=== PATIENT | female | born 1955 | race Caucasian/White ===

== ENCOUNTER 2021-01-11 16:52 | Emergency (ER) | payer MEDICARE, OTHER, SELFPAY ==
--- NOTE | ~2021-01-11 | CT_ITS ---
EXAMINATION: CT abdomen pelvis wo con DATE: 01/11/2021 18:23 INDICATION: Right lower quadrant abdominal pain TECHNIQUE: Computed tomography (CT) of the abdomen and pelvis was performed without intravenous contr ast. Automated exposure control and iterative reconstruction technique were employed. The dose-length product was 964.84 mGy-cm. COMPARISON: None FINDINGS: Lung bases are clear. Visualized inferior heart is normal. No pericardial or pleural effusion. Modera te-sized sliding-type hiatal hernia. Liver, gallbladder, spleen and bilateral adrenal glands are norm al. Mild fatty atrophy of the pancreatic body and tail with moderate atrophy at the uncinate process. Bilateral nephrolithiasis with 5 stones in the left kidney measuring up to 3-4 mm and a couple stone s measuring 1 mm and 2 mm at the lower pole of the right kidney. There is mild right hydroureteroneph rosis extending to a 4 x 3 mm stone at the right ureterovesicular junction. The bladder is decompress ed. There are few diverticula at the junction of the descending and sigmoid colon without adjacent in flammatory change to suggest diverticulitis. Small bowel and appendix are normal. The uterus is not i dentified and has likely been surgically resected. No free intraperitoneal gas or fluid. No pathologi lemuel enlarged abdominal or pelvic lymphadenopathy. Chronic T12 burst fracture with 20% vertebral bod y height loss. IMPRESSION: 1. Bilateral nephrolithiasis with obstructing 4 x 3 mm stone at the right ureterovesicular junction w ith mild right hydroureteronephrosis. 2. Moderate-sized sliding-type hiatal hernia. Reviewed, dictated and finalized at location A. IMPRESSION: 1. Bilateral nephrolithiasis with obstructing 4 x 3 mm stone at the right urete rovesicular junction with mild right hydroureteronephrosis. 2. Moderate-sized sliding-type hiatal hernia.
[2021-01-11 17:05] VITALS: BP 142/83; PULSE 85; RESP 18; TEMP 36.3; O2SAT 98
[2021-01-11 17:26] LABS: Add Urine Microscopic? YES; Appearance Urine Clear (Clear); Bilirubin Urine Negative (Negative); Blood Urine 3+ (Negative); Color Urine Yellow (Yellow); Glucose Urine UA Negative (Negative); Ketones Urine Negative (Negative); Leukocyte Esterase Ur Trace LEU/UL (Negative); Mucus Urine Moderate /lpf; Nitrate Urine Negative (Negative); Protein Urine 1+ mg/dL (Negative); Squamous Epithelial Cell Urine Few /hpf (Few); Urobilinogen Urine Negative mg/dL (<2.0)
[2021-01-11 17:31] LABS: Specific Grav Ur 1.032 (1.001-1.035)
[2021-01-11 17:36] LABS: Basophils Absolute Auto 0.1 K/mm3 (0.0-0.1); Basophils Percent Auto 0.4 % (0.2-1.2); Eosinophils Absolute Auto 0.2 K/mm3 (0-0.3); Eosinophils Percent Auto 1.3 % (0-4.4); Hematocrit 41.9 % (37.0-47.0); Hemoglobin 14.1 g/dL (12.0-15.0); Immature Granulocyte Absolute 0.04 K/mm3 (0.00-0.031); Immature Granulocyte Percent A 0.3 % (0-0.5); Lymphocytes Absolute Auto 3.38 K/mm3 (0.9-3.2); Lymphocytes Percent Auto 29.4 % (18.3-44.2); Mean Corpuscular HGB Conc 33.7 g/dl (32-36); Mean Corpuscular Hemoglobin 30.7 pg (26-34); Mean Corpuscular Volume 91.1 fl (80-100); Mean Platelet Volume 10.3 fl (7.4-10.4); Monocytes Absolute Auto 0.7 K/mm3 (0.1-0.6); Monocytes Percent Auto 5.8 % (2.6-8.5); Neutrophils Absolute Auto 7.2 K/mm3 (1.3-6.7); Neutrophils Percent Auto 62.8 % (45.5-73.1); Platelet Count Result 368 k/mm3 (150-375); Red Cell Distribution Width 12.9 % (11.5-14.5); White Blood Count 11.5 K/mm3 (4.5-10.0)
[2021-01-11 17:47] LABS: Alanine Aminotransferase 25 U/L (4-35); Alkaline Phosphatase 116 U/L (38-126); Anion Gap 14 mmol/L (8-16); Aspartate Amino Transferase 30 U/L (14-36); Bilirubin,Total 0.5 mg/dL (0.2-1.3); Blood Urea Nitrogen 23 mg/dL (7-17); Calcium 10.3 mg/dL (8.4-10.2); Carbon Dioxide 22 mmol/L (22-30); Chloride 107 mmol/L (98-107); Estimated CRCL calculation 56 ml/min; Estimated Glomerular Filt Rate > 60; Glucose 93 mg/dL (65-110); Lipase 74 U/L (23-300); Sodium 143 mmol/L (137-145)
--- NOTE | 2021-01-11 18:11 | ED.ABDPAIN ---
HPI - Abdominal Pain General Chief Complaint: Abdominal Pain Stated Complaint: RLQ PAIN Time Seen by Provider: 01/11/21 16:56 Source: patient Mode of arrival: ambulatory Limitations: no limitations History of Present Illness HPI narrative: 65-year-old female Referred over from urgent care for evaluation of abdominal pain Patient reports that she has been having pain in the lower right abdomen for about 3 days Worse with some activities or with palpation at the urgent care She vomited once at the onset but otherwise does not have diarrhea or constipation, nor does she have a fever Likewise denies hematuria dysuria frequency or back pain Previous hysterectomy, no other abdominal operations Related Data Home Medications Medication Instructions Recorded Confirmed calcium carbonate-vitamin D3 1 tablet PO DAILY 03/06/19 03/06/19 [Caltrate with Vitamin D3] fexofenadine 1 mg PO DAILY 03/06/19 03/06/19 omeprazole See Rx Instructions .ROUTE .COMPLEX 03/06/19 03/06/19 pravastatin 40 mg DAILY 03/06/19 03/06/19 Allergies Allergy/AdvReac Type Severity Reaction Status Date / Time niacin Allergy Mild Verified 08/14/10 14:40 PAIN MED Allergy Mild Uncoded 08/14/10 14:40 PCN Allergy Mild Uncoded 11/14/08 16:38 Review of Systems Review of Systems: All systems reviewed & are unremarkable except as noted in HPI and below Constitutional: Constitutional: Reports no additional constitutional complaints, Denies chills, Denies fever(s) and Denies headache(s) Eyes: Eyes: Reports no additional eye complaints and Denies change in vision ENT: Denies headache(s) and Denies sore throat Cardiovascular: Cardiovascular: Denies chest pain and Denies dyspnea Respiratory: Respiratory: Denies cough and Denies dyspnea Gastrointestinal: Gastrointestinal: Reports abdominal pain, Denies bloating, Denies constipation, Denies diarrhea, Reports nausea and Reports vomiting Genitourinary: Genitourinary: Denies urinary frequency, Denies nocturia, Denies dysuria and Denies flank pain Musculoskeletal: Musculoskeletal: Denies deformity, Denies arthralgias, Denies joint swelling and Denies numbness Integumentary/Breasts: Skin/Breast: Denies rash and Denies wounds Neurologic: Denies headache(s), Denies focal weakness and Denies numbness Psychiatric: Psychiatric: Reports no additional psychiatric complaints Endocrine: Endocrine: Reports no additional endocrine complaints Hematologic/Lymphatic: Hematologic/Lymphatic: Reports no additional hematologic/lymphatic complaints Allergic/Immunologic: Allergic/Immunologic: Reports no additional allergic/immunologic complaints [facility] Social History Social History Gender identity (if verbalized by the patient): Female Exam Const: General: cooperative and no acute distress Orientation/consciousness: patient oriented x3 (alert) HENMT: Head: normal to inspection, normocephalic and atraumatic Ears: external ears normal General nose exam: no epistaxis Eyes: Conjunctivae: conjunctivae normal EOM: EOMs intact bilaterally Neck: Neck: normal visual inspection, supple and no JVD Resp: Effort & Inspection: normal respiratory effort and not labored Auscultation: clear to auscultation bilaterally, no rales, no rhonchi, no wheezes and other (BS =) Cardio: Rate: regular rate Rhythm: regular rhythm Heart sounds: no murmurs GI: GI Palp: Yes Soft to palpation, No Tenderness to palpation present (GI), No Guarding due to palpation present (GI) and No Rebound tenderness present Other: Really cannot elicit any right lower quadrant tenderness currently Skin: General skin exam: normal color and no rashes or lesions noted Neuro: General: patient oriented x3 (alert) and moves all extremities Speech: normal speech Extrem: General: normal to inspection and no pedal edema Psych: Affect: normal affect Course Vital Signs Vital signs: Vital Signs Temperature 36.3 C L 01/11/21 17:05 Pulse Rate 85
[2021-01-11 18:16] VITALS: BP 142/84; PULSE 80; RESP 16; O2SAT 97
[2021-01-11] MEDS: KETOROLAC 30 MG/ML VIAL (*BKC) IV PUSH (19:48)
[2021-01-11 19:49] VITALS: BP 140/70; PULSE 70; RESP 18; O2SAT 100
== END 2021-01-11 20:40 | disposition home or self-care (01) ==
PROVIDERS: Emergency Provider Emergency Medicine
DX: N13.2 Hydronephrosis with renal and ureteral calculous obstruction (principal); K44.9 Diaphragmatic hernia without obstruction or gangrene
CPT/HCPCS: 36415; 74176; 80053; 81001; 83690; 85025; 87086; 87088; 96374; 99284; J1885

== ENCOUNTER 2021-01-23 14:28 | Outpatient (CLI) | payer MEDICARE, OTHER, SELFPAY ==
--- NOTE | ~2021-01-23 | XR_ITS ---
EXAMINATION: XR abdomen/kub 1V EXAM DATE: 01/23/2021 15:01 INDICATION: calcium kidney stone F/U . TECHNIQUE: Frontal projection of the upper abdomen, frontal projection lower abdomen/pelvis for inter pretation. Correlation is made to CT abdomen pelvis 01/11/2021. FINDINGS: Cannot identify any pelvic calcification that would correlate with the right UVJ stone see n on CT. There is left sided 5 mm stone. Nonobstructive bowel gas pattern. There are mild bony degene rative changes. IMPRESSION: Left nephrolithiasis. Reviewed, dictated and finalized at location A. IMPRESSION: Left nephrolithiasis.
== END 2021-01-23 14:29 | disposition home or self-care (01) ==
PROVIDERS: Visit Provider Nurse Practitioner Adult Health
DX: N20.0 Calculus of kidney (principal)
CPT/HCPCS: 74018

== ENCOUNTER 2021-02-02 14:08 | Outpatient (CLI) | payer MEDICARE, OTHER, SELFPAY ==
--- NOTE | 2021-02-02 14:00 | ECG_ITS ---
Measurements Intervals [place] Rate: 75 P: 40 IN: 143 QRS: -7 QRSD: 82 T: 29 QT: 352 QTc: 393 Interpretive Statements SINUS RHYTHM POOR R WAVE PROGRESSION, ANTERIOR LEADS BASELINE ARTIFACT- I, II, AVR, AVL, AVF BORDERLINE ECG Electronically Signed On 02-02-2021 14:39:58 CDT by Victor M Flores D.O.
[2021-02-02 15:54] LABS: INR 0.9; Partial Thromboplastin Time 26.7 SECONDS (22.3-36.8); Prothrombin Time 12.2 Seconds (11.1-14.7)
== END 2021-02-02 14:09 | disposition home or self-care (01) ==
PROVIDERS: Visit Provider Urology
DX: Z01.818 Encounter for other preprocedural examination (principal); E78.00 Pure hypercholesterolemia, unspecified; N20.0 Calculus of kidney
CPT/HCPCS: 36415; 85610; 85730; 87086; 87088; 93005

== ENCOUNTER 2021-02-09 00:48 | Day surgery (SDC) | payer MEDICARE, OTHER, SELFPAY ==
[2021-02-01 10:02] VITALS: BMI 32.5
--- NOTE | 2021-02-02 15:47 | P.HP_ITS ---
History of Present Illness History of Present Illness Consent: Risks, benefits, and alternatives have been discussed and questions answered. Patient agrees to proceed with procedure. Chief complaint: bilateral kidney stone Narrative: Ailyn Vargas is a 66 year old female recently underwent evaluation for flank pain. CT imaging demonstrated a nonobstructing 5 mm stone in her left kidney that, by KUB, is calcified. After discussion of therapeutic options she has elected for ESWL. She is aware the risk including, but not limited to, adverse cardiopulmonary events, renal bleeding leading to perinephric hematoma, failure to fracture the stone need for repeat or additional procedures. Review of Systems Cardiovascular: Cardiovascular: Denies chest pain, Denies lightheadedness, Denies palpitations and Denies dyspnea Respiratory: Respiratory: Denies dyspnea Gastrointestinal: Gastrointestinal: Denies diarrhea, Denies nausea and Denies vomiting Genitourinary: Genitourinary: Denies hematuria and Denies dysuria Endocrine: Endocrine: Denies palpitations PMFSH Social History Social History Smoking status: Never smoker Gender identity (if verbalized by the patient): Female Spiritual care concerns: No Meds Home Medications and Allergies Home Medications Medication Instructions Recorded Confirmed Type calcium carbonate-vitamin D3 1 tablet PO DAILY 03/06/19 02/01/21 History [Caltrate with Vitamin D3] fexofenadine 1 mg PO DAILY 03/06/19 02/01/21 History omeprazole See Rx Instructions .ROUTE .COMPLEX 03/06/19 02/01/21 History pravastatin 40 mg PO DAILY 03/06/19 02/01/21 History hydrocodone-acetaminophen 1 tablet PO Q8H PRN #10 tablet 01/11/21 02/01/21 Rx ondansetron 4 mg PO Q6H PRN #10 tablet 01/11/21 02/01/21 Rx tamsulosin [Flomax] 0.4 mg PO DAILY #7 cap 01/11/21 02/01/21 Rx cholecalciferol (vitamin D3) 25 mcg PO DAILY 02/01/21 02/01/21 History ibuprofen [Advil] 400 mg PO Q6H PRN 02/01/21 02/01/21 History epjok-wn8-wyw-dzj-co4-hhf-astx 1 cap PO DAILY 02/01/21 02/01/21 History [Krill Oil ([place] 3 and 6)] Allergies Allergy/AdvReac Type Severity Reaction Status Date / Time niacin Allergy Mild Flushing Verified 02/01/21 09:45 morphine Allergy Nausea and Verified 02/01/21 09:45 Vomiting PAIN MED Allergy Mild SENSITIVE Uncoded 02/01/21 09:45 PCN Allergy Mild Rash Uncoded 02/01/21 09:45 Exam Const: General: no acute distress Resp: Effort & Inspection: normal respiratory effort GI: Inspection: non-distended GI Palp: No abdominal tenderness and No Guarding due to palpation present (GI) Auscultation: normal bowel sounds Assessment and Plan Assessment and plan (1) Left renal stone: Code(s): N20.0 - Calculus of kidney Status: Acute
[2021-02-09] VITALS (8 sets, daily range): BP systolic 115–140; BP diastolic 62–89; PULSE 64–75; RESP 12–16; TEMP 36.1–36.5; O2SAT 93–100
--- NOTE | ~2021-02-09 | XR_ITS ---
EXAMINATION: XR abdomen/kub 1V DATE: 02/09/2021 07:52 INDICATION: Kidney stone. TECHNIQUE: A supine view of the abdomen on 2 radiographs was obtained. COMPARISON: CT abdomen and pelvis 01/11/2021 FINDINGS: There are no dilated loops of bowel. There is a 5 mm stone in left kidney. There is a phleb olith in right pelvis. IMPRESSION: 1. Left kidney stone. Reviewed, dictated and finalized at location A. IMPRESSION: 1. Left kidney stone.
--- NOTE | 2021-02-09 06:53 | WPDHPUPDATE1 ---
History and Physical Update Update Date/Time: 02/09/21 06:53 History and Physical has been reviewed, including an updated exam of the patient. There are NO changes in the patient's condition. Risks, benefits, and alternatives have been discussed and questions answered. Patient agrees to proceed with procedure.
[2021-02-09] MEDS: LACTATED RINGERS 1,000 ML 30 ML IV CONT (09:06)
--- NOTE | 2021-02-09 09:12 | P.PNAN_ITS ---
Anes - Initial Pre Proc Eval Procedure: Operation Date: 02/09/21 09:30 Proposed Procedures p Left Extracorporeal Shock Wave Lithotripsy - Khurram Mondragon MD Date/Time: 02/09/21 09:12 Surgeon: Khurram Mondragon MD Pre Op Diagnosis: bilateral kidney stone Patient Data Age: 66 Gender: F Height: 1.6 m Weight: 84.6 kg Last Vital Signs Temp 36.1 C L 02/09/21 08:28 Pulse 75 02/09/21 08:28 Resp 16 02/09/21 08:28 BP 129/62 02/09/21 08:28 Pulse Ox 95 02/09/21 08:28 Allergies Allergy/AdvReac Type Severity Reaction Status Date / Time niacin Allergy Mild Flushing Verified 02/09/21 08:01 morphine Allergy Nausea and Verified 02/09/21 08:01 Vomiting PAIN MED Allergy Mild SENSITIVE Uncoded 02/01/21 09:45 PCN Allergy Mild Rash Uncoded 02/09/21 08:01 Home Medications Medication Instructions Recorded Confirmed Type calcium carbonate-vitamin D3 1 tablet PO DAILY 03/06/19 02/09/21 History [Caltrate with Vitamin D3] fexofenadine 1 mg PO DAILY 03/06/19 02/09/21 History omeprazole See Rx Instructions .ROUTE .COMPLEX 03/06/19 02/09/21 History pravastatin 40 mg PO DAILY 03/06/19 02/09/21 History hydrocodone-acetaminophen 1 tablet PO Q8H PRN #10 tablet 01/11/21 02/01/21 Rx ondansetron 4 mg PO Q6H PRN #10 tablet 01/11/21 02/01/21 Rx tamsulosin [Flomax] 0.4 mg PO DAILY #7 cap 01/11/21 02/09/21 Rx cholecalciferol (vitamin D3) 25 mcg PO DAILY 02/01/21 02/09/21 History ibuprofen [Advil] 400 mg PO Q6H PRN 02/01/21 02/09/21 History vdyrh-ji5-kjz-fbm-bj9-bxq-astx 1 cap PO DAILY 02/01/21 02/09/21 History [Krill Oil ([place] 3 and 6)] Patient hx anesthesia problems: post op nausea/vomiting Family hx anesthesia problems: none Results Review: All pre-operative results and documents have been reviewed as part of the pre-operative evaluation. [facility] Past Medical History Medical History GERD (gastroesophageal reflux disease) Hyperlipidemia Social History Social History Smoking status: Never smoker Living arrangements: with family Gender identity (if verbalized by the patient): Female Spiritual care concerns: No Anes - Eval Final PreProcedure Day of Procedure 02/09/21 09:12 Patient weight: obese Heart: regular rate and rhythm Lungs: clear to auscultation Airway: Mallampati scale class II Neurological: alert and oriented Last oral intake: >/= 8 hours ASA classification: III Emergent: no Anesthetic plan: proceed Anesthesia type and monitoring: general LMA and standard monitoring Results Review: All pre-operative results and documents have been reviewed as part of the pre-operative evaluation. Informed Consent: The patient's anesthetic plan and its attendant risks and benefits were discussed with the patient/family/POA. Questions were solicited and answers provided to the satisfaction of the patient/family/POA.
[2021-02-09] MEDS: SCOPOLAMINE 1.5 MG PATCH TRANSDERM (09:16)
[2021-02-09] MEDS: ceFAZolin 2 GM/D5W 50 ML 2 GM/50 ML BAG IVPB (09:18)
--- NOTE | 2021-02-09 09:33 | W.PM.PROC2 ---
Procedure Note - Detailed Date of Procedure 02/09/21 Pre-op Diagnosis Bilateral kidney stone Post-op Diagnosis same Procedure Performed Left ESWL Surgeon Khurram Mondragon MD Description of Procedure The patient was brought to the operative suite where she was placed in the supine position on the Dornier lithotripsy table. The focal point of the lithotripter was placed at a 5-6mm left renal calculus. A total of 2500 shocks were delivered at a power setting of 4. There appeared to be good fragmentation of the stone. The patient tolerated the procedure well and was taken to the recovery room in good condition. Estimated Blood Loss 0 Drains No Packing No Pathology yes Complications No immediate complications Condition stable Disposition PACU
--- NOTE | 2021-02-09 11:59 | SUR.PHASEII ---
Vitals are stable. Patient is waiting for ride.
== END 2021-02-09 12:01 | disposition home or self-care (01) ==
PROVIDERS: Visit Provider Urology
PROC: (CPT 50590; principal; 2021-02-09 09:30)
DX: N20.0 Calculus of kidney (principal); E78.5 Hyperlipidemia, unspecified; K21.9 Gastro-esophageal reflux disease without esophagitis; E66.9 Obesity, unspecified; Z68.33 Body mass index [BMI] 33.0-33.9, adult
CPT/HCPCS: 50590; 74018; A9270; J0690; J1100; J2250; J2405; J2704; J3010; J7120

== ENCOUNTER 2021-02-20 11:21 | Outpatient (CLI) | payer MEDICARE, OTHER, SELFPAY ==
--- NOTE | ~2021-02-20 | XR_ITS ---
EXAMINATION: XR abdomen/kub 1V INDICATION: Calcium kidney stone TECHNIQUE: Supine views of the abdomen were obtained on 2 radiographs. COMPARISON: 02/09/2021 FINDINGS: The previously described 5 mm stone of the left kidney is no longer identified. No stone fr agments are identified in the kidney or along the expected course of the left ureter.. The bowel gas pattern is normal. There is mild osteoarthritis of the hips. IMPRESSION: 1. Findings consistent with interval lithotripsy. No definite urolithiasis is identified. Reviewed, dictated and finalized at location B. IMPRESSION: 1. Findings consistent with interval lithotripsy. No definite urolithiasis is i dentified.
== END 2021-02-20 11:22 | disposition home or self-care (01) ==
LOC: ANHIMG 11:26
PROVIDERS: Visit Provider Urology
DX: N20.0 Calculus of kidney (principal)
CPT/HCPCS: 74018

== ENCOUNTER 2021-08-20 14:48 | Outpatient (CLI) | payer MEDICARE, OTHER, SELFPAY ==
--- NOTE | ~2021-08-20 | XR_ITS ---
EXAMINATION: XR abdomen/kub 1V INDICATION: Bilateral kidneys TECHNIQUE: Supine views of the abdomen were obtained on 2 radiographs. COMPARISON: 02/20/2021 FINDINGS: There appears to be a punctate stone in the lower pole of the right kidney. Bowel contents obscure visualization of the left kidney however no definite left-sided stones are identified. The willis wel gas pattern is normal. The visualized lung bases are clear. There is mild osteoarthritis of the h ips. IMPRESSION: 1. Probable punctate stone of the right kidney lower pole. Reviewed, dictated and finalized at location A.
== END 2021-08-20 14:49 | disposition home or self-care (01) ==
PROVIDERS: Visit Provider Urology
DX: N20.0 Calculus of kidney (principal)
CPT/HCPCS: 74018

== ENCOUNTER 2021-11-05 12:08 | Emergency (ER) | payer MEDICARE, OTHER, SELFPAY ==
[2021-11-05 12:23] VITALS: BP 116/67; PULSE 83; RESP 20; TEMP 36.6; O2SAT 97
--- NOTE | 2021-11-05 12:46 | ED.FEMALEGU ---
HPI - Female Genitourinary General Chief complaint: Urogenital-Female Stated complaint: uti complaint Time Seen by Provider: 11/05/21 12:34 Source: patient Mode of arrival: ambulatory Limitations: no limitations History of Present Illness HPI Narrative: Patient presents today complaint of 1 week history of dysuria, urgency, and bladder spasms. She has been taking bbxm-cbw-yzbenrs Azo for her symptoms and the last dose was this morning. Patient also took a weeks worth of someone else's Macrobid, which did not help her symptoms. Related Data Home Medications Medication Instructions Recorded Confirmed calcium carbonate 600 mg-vitamin 1 tablet PO DAILY 03/06/19 11/05/21 D3 20 mcg (800 unit) tablet (Caltrate with Vitamin D3) fexofenadine 180 mg tablet 1 mg PO DAILY 03/06/19 11/05/21 omeprazole 20 mg capsule,delayed See Rx Instructions .Route .COMPLEX 03/06/19 11/05/21 release pravastatin 40 mg tablet 40 mg PO DAILY 03/06/19 11/05/21 cholecalciferol (vitamin D3) 25 25 mcg PO DAILY 02/01/21 11/05/21 mcg (1,000 unit) tablet krill 1 cap PO DAILY 02/01/21 11/05/21 goj-[id number]-tnc-vmj-uw9-cri-astax 1,500 mg-165 mg-67.5 mg capsule (Krill Oil ([place] 3 and 6)) Allergies Allergy/AdvReac Type Severity Reaction Status Date / Time niacin Allergy Mild Flushing Verified 11/05/21 12:35 morphine Allergy Nausea and Verified 11/05/21 12:35 Vomiting PAIN MED Allergy Mild SENSITIVE Uncoded 11/05/21 12:35 PCN Allergy Mild Rash Uncoded 11/05/21 12:35 Review of Systems Review of Systems: CONSTITUTIONAL: Denies body aches, fever, chills, or sweats. EYES: Denies visual changes, redness, or discharge. ENT: Denies rhinorrhea, congestion, sore throat, or otalgia. CARDIOVASCULAR: Denies chest pain, palpitations, or edema. RESPIRATORY: Denies cough or dyspnea. GASTROINTESTINAL: Denies abdominal pain, nausea, vomiting, or diarrhea. GENITOURINARY: Denies hematuria.+ Dysuria, urgency, bladder spasms SKIN: Denies rash, itching, or wounds. MUSCULOSKELETAL: Denies back pain, joint pain, or myalgia. NEUROLOGIC: Denies headache, numbness, tingling, or weakness. PSYCH: Denies depression or anxiety. [facility] Past Medical History Medical History GERD (gastroesophageal reflux disease) Hyperlipidemia Social History Social History Smoking status: Never smoker Gender identity (if verbalized by the patient): Female Spiritual care concerns: No Comments At time of signature, I have reviewed and agree with nursing past medical, surgical, social and family history unless otherwise noted. Please see nursing chart for further information. There is no relevant family history pertinent to the presenting complaint Exam Narrative: GENERAL: Well-appearing, well-nourished, and in no acute distress. HEAD: Normocephalic, atraumatic. EYES: EOMI. No redness or drainage. Conjunctivae normal. ENT: Mucous membranes pink and moist. NECK: Normal AROM. CHEST: No respiratory distress. Clear to auscultation. HEART: Regular rate and rhythm. No murmur appreciated. Normal peripheral pulses. ABDOMEN: Soft, nontender, nondistended, normal active bowel sounds.-CVAT EXTREMITIES: Normal range of motion. No edema. SKIN: Warm, dry, no rash. Capillary refill normal. Normal skin turgor. NEURO: No focal deficits. Alert and oriented x3. Gait steady. PSYCH: Normal affect. No signs of depression or anxiety. Course Course Emergency Course: Discussed with patient the importance of not taking Azo prior to visit if she is going to provide a urine sample, as this excuse the results of the urinalysis. Patient states she was in too much pain this morning to wait, then asked me if I had ever had a bladder infection before, as then I would know why she took it. Also states that she gets UTIs frequently and she has been getting them long befor
== END 2021-11-05 13:01 | disposition home or self-care (01) ==
PROVIDERS: Emergency Provider Nurse Practitioner; PCP Family Medicine
DX: N30.01 Acute cystitis with hematuria (principal); K21.9 Gastro-esophageal reflux disease without esophagitis; E78.5 Hyperlipidemia, unspecified
CPT/HCPCS: 81003; 87086; 87088; 99213; G0463

== ENCOUNTER 2022-11-26 15:01 | Outpatient (CLI) | payer MEDICARE, OTHER, SELFPAY ==
--- NOTE | ~2022-11-26 | XR_ITS ---
EXAM: XR abdomen/kub 1V DATE: 11/26/2022 15:17 HISTORY: PRASHANTH KIDNEY STONES . COMPARISON: 08/20/2021; CT abdomen pelvis 01/11/2021. FINDINGS: Senescent change and atelectasis/scar in the lung bases. Normal bowel gas pattern. No orga nomegaly. Punctate calcifications project over both kidneys. Mild lumbar degenerative disc disease. M ild bilateral hip osteoarthritis. IMPRESSION: Bilateral punctate nephrolithiasis.. Reviewed, dictated and finalized at location K.
== END 2022-11-26 15:02 | disposition home or self-care (01) ==
PROVIDERS: PCP Family Medicine; Visit Provider Nurse Practitioner Adult Health
DX: N20.0 Calculus of kidney (principal)
CPT/HCPCS: 74018

== ENCOUNTER 2023-06-03 14:30 | Outpatient (CLI) | payer MEDICARE, OTHER, SELFPAY ==
--- NOTE | ~2023-06-03 | XR_ITS ---
EXAMINATION: XR abdomen/kub 1V DATE: 06/03/2023 14:49 INDICATION: Bilateral kidney stones. TECHNIQUE: A supine view of the abdomen on 2 radiographs was obtained. COMPARISON: Abdomen radiographs 11/26/2022, CT abdomen and pelvis 01/11/2021 FINDINGS: There are no dilated loops of bowel. There are vascular calcifications in the pelvis. The k idneys are obscured by bowel. IMPRESSION: 1. No visible urolithiasis. Reviewed, dictated and finalized at location A. [employer]PER[employer] IMPRESSION: 1. No visible urolithiasis.
== END 2023-06-03 14:31 | disposition home or self-care (01) ==
LOC: ANHIMG 14:32
PROVIDERS: PCP Family Medicine; Visit Provider Physician Assistant
DX: N20.0 Calculus of kidney (principal)
CPT/HCPCS: 74018

== ENCOUNTER 2023-12-09 13:46 | Outpatient (CLI) | payer MEDICARE, OTHER, SELFPAY ==
--- NOTE | ~2023-12-09 | XR_ITS ---
XR abdomen/kub 1V Ordering provider: Ansley Philip PA-C History: . PRASHANTH KIDNEY STONES, YEARLY F/U . Comparison: June 03, 2023 FINDINGS: BOWEL: Nonobstructive bowel gas pattern. ORGANOMEGALY: None. SIGNIFICANT PATHOLOGIC CALCIFICATIONS: Calcifications in the left kidney area suggestive of Multiple left kidney stones. OTHER: No free air is seen under the diaphragm. IMPRESSION: NO ACUTE ABDOMINAL FINDINGS. Highly suggestive multiple left kidney stones. Reviewed, dictated and finalized at location A.
== END 2023-12-09 13:47 | disposition home or self-care (01) ==
PROVIDERS: PCP Family Medicine; Visit Provider Physician Assistant
DX: N20.0 Calculus of kidney (principal)
CPT/HCPCS: 74018

== ENCOUNTER 2024-07-06 15:32 | Outpatient (CLI) | payer MEDICARE, OTHER, SELFPAY ==
--- NOTE | ~2024-07-06 | XR_ITS ---
Exam: Abdomen 1V HISTORY: annual checkup; no symptoms COMPARISON: 12/09/2023 TECHNIQUE: Supine images of the abdomen FINDINGS: Bowel gas pattern is non-obstructive. There is no free air or deep sulci. Redemonstration of multiple calcifications projecting over the left kidney. Calcified pleural plaques are also noted. Moderate fecal stasis is also present. Bones and soft tissues are unremarkable. IMPRESSION: Nonspecific, nonobstructive bowel gas pattern. Multiple calcifications projecting over the left kidney, as detailed above. Reviewed, dictated and finalized at location A.
--- OUTSIDE RECORDS SUMMARY | 2024-07-06 17:32 | XMS_ITS | Encounter Summary ---
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 Name Role Phone Lam Duarte DO Primary Care Provider + Encounter Details Date Type Department Care Team ([facility] st Contact Info) Description 12/09/2023 [place] Only [facility] [place] [facility] [place] [address] [place] [id number] Lam Duarte DO [facility] [address] Social History Tobacco Use Types Packs/Day Years Used Date Smoking Tobacco: Never PHQ-2 Answer Date Recorded PHQ-2 Total Score (If total score is 3 or more points, staff should administer the PHQ-9) 0 08/25/2023 Comments No Sex and Gender Information Value Date Recorded Sex Assigned at Not on file 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 Gender Identity Not on file Sexual Orientation Straight 07/21/2021 10 :55 PM CDT documented as of this encounter Plan of Treatment Not on file documented as of this encounter Procedures Procedure Name Priority Date/Time Associated Diagnosis Comments SCAN - RADIOLOGY/IMAGING 12/09/2023 documented in this encounter Results * SCAN - RADIOLOGY/IMAGING (12/09/2023) Anatomical Region Laterality Modality Other Lam Duarte DO Final Re sult documented in this encounter Visit Diagnoses Not on filedocumented in this encounter Care Teams [employer] Well 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
--- OUTSIDE RECORDS SUMMARY | 2024-07-06 17:32 | XMS_ITS | Clinical Summary ---
Author Organization [facility] Address [address] [place] [address] Care Team Providers Care Accounting Intern Name Role Phone Unavailable Primary Care Provider Unavailabl e Medications omeprazole 20 MG capsule Take 1 capsule (20 mg total) by mouth daily. 30 capsule 3 12/11/2020 Active pravastatin 20 MG tablet Take 2 tablets (40 mg total) by mouth nightly at bedtime. 90 tablet 3 12/11/2020 Active fexofenadine 180 MG tablet Take 1 tablet (180 mg total) by mouth daily. 90 tablet 3 12/11/2020 Active Social History Tobacco Use Types Packs/Day Years Used Date Smoking Tobacco: Never Assessed Comments Unknown Sex and Gender Information Value Date Recorded Sex Assigned at Not on file Legal Sex Female 5:52 PM CDT Gender Identity Not on file Sexual Orientation Not on file Plan of Treatment Health Maintenance Due Date Last Done Comments Colorectal Cancer Screening Colonoscopy (10 Years) 1955 Hepatitis C 01/16/1974 DTaP, Tdap and Td Vaccines ( 1 - Tdap) 01/16/1975 Mammogram Screening 1996 Zoster Vaccines (1 of 2) 01/16/2006 Dexa Scan (General) 01/16/2021 Pneumococcal Vaccine: 65+ Ye ars (1 of 1 - PCV) 01/16/2021 COVID-19 Vaccine ( - 2023-2 5 season) 2023 Influenza Adult (#1) 2024 RSV Immunization or 60+ Years (1 - 1-dose 75+ series) 01/16/2031 Meningococcal B Vaccine Aged Out No l onger eligible based on patient's age to complete this topic Meningococcal Vaccine Aged Out No fish dali eligible based on patient's age to complete this topic RSV Immunizations Under 20 Months Aged Out No longer eligible based on patient's age to complete this topic
--- OUTSIDE RECORDS SUMMARY | 2024-07-06 17:32 | XMS_ITS | Encounter Summary ---
Author Organization [facility] Care Team Providers Care Senior Technical Support Analyst Name Role Phone No, Physician Primary Care Provider [phone] Lam Duarte DO Primary Care Provider + Encounter Details Date Type Department Care Team (Latest Contact Info) Description 09/13/2014 Orders Only [facility] ProviderGerald MD [address] [place] [id number] Social History Tobacco Use Types Packs/Day Years Used Date Smoking Tobacco: Never Assessed Comments Unknown Sex and Gender Information Value Date Recorded Sex Assigned at Not on file 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 Historical Provider Final Res ult documented in this encounter Visit Diagnoses Not on filedocumented in this encounter Care Teams Senior Technical Support Analyst Relationship Specialty Start Date End Date No, Physician PCP - General 05/16/21 07/22/21 Lam Duarte DO [address] [address] PCP - General Family Medicine 07/23/21 documented as of this encounter
--- OUTSIDE RECORDS SUMMARY | 2024-07-06 17:32 | XMS_ITS | Clinical Summary ---
Author Organization [facility] [employer] Address [address] [place] [address] Care Team Providers Care Machine Bobbin Winder Name Role Phone Unavailable Primary Care Provider Unavailabl e Source Comments [facility] [employer],non-owned Affiliates and Associated Physician Practices is amultiple site organization consisting of ambulatory clinics and hospital sitesin [place], [place], [place] and [place]. This disclosure is being madepursuant to the Care Everywhere program and may not contain all information available regarding this patient. Last updated 18.[facility] [employer] Social History Tobacco Use Types Packs/Day Years Used Date Smoking Tobacco: Never Assessed Sex and Gender Information Value Date Recorded Sex Assigned at Not on file Gender Identity Not on file Sexual Orientation Not on file Plan of Treatment Health Maintenance Due Date Last Done Comments BONE DENSITY TESTING 1955 COLOGUARD (AGES 45-75) - COL ON CA SCREENING 1956 COLON MONITORING 1956 COLONOSCOPY - COLON CA SCREENING 1956 CT COLONOGRAPHY - COLON CA SCREENING 1955 Colorectal Cancer Screening 1956 FIT - COLON CA SCREENING 1956 FLEX SIG - COLON CA SCREENING 1956 LIPID TESTING 1956 MAMMOGRAM 1956 MEDICARE AWV 12 MONTHS 1955 HEPATITIS C SCREENING 01/12/1974 DTAP/TDAP/TD VACCINES (1 - Tdap) 01/16/1975 PNEUMOCOCCAL VACCINE 50+ (1 of 1 - PCV) 01/16/2006 ZOSTER VACCINE (1 of 2) 01/16/2006 COVID-19 VACCINE ( - 2023-2 5 season) 2023 INFLUENZA VACCINE (#1) 2023 DEPRESSION SCREENING 04/21/2024 Respiratory Syncytial Virus (RSV) Vaccine Pt: or over 60 yrs (1 - 1-dose 75+ series) 01/16/2031 HEPATITIS B VACCINE Aged Out No longe r eligible based on patient's age to complete this topic HIB VACCINE Aged Out No longer eligi ble based on patient's age to complete this topic HPV VACCINE Aged Out No longer eligi ble based on patient's age to complete this topic MENINGOCOCCAL (Group B) VACC INE SHARED DECISION-MAKING Aged Out No longer eligibl e based on patient's age to complete this topic MENINGOCOCCAL GROUPS A/C/Y/W VACCINE Aged Out No longer eligible b ased on patient's age to complete this topic
--- OUTSIDE RECORDS SUMMARY | 2024-07-06 17:32 | XMS_ITS | Encounter Summary ---
Author Organization [facility] Address [address] [place] [address] Care Team Providers Care Web Content Specialist Name Role Phone Unavailable Primary Care Provider Unavailabl e Encounter Details Date Type Department Care Team (Late st Contact Info) Description 06/11/2023 Lab Requisition [facility] - DermPath Lab [address] [place] [id number] Chapis Palencia MD [address] [place] [address] Neoplasm of uncertain behavior of skin Social History Tobacco Use Types Packs/Day Years Used Date Smoking Tobacco: Never Assessed Sex and Gender Information Value Date Recorded Sex Assigned at Not on file Gender Identity Not on file Sexual Orientation Not on file documented as of this encounter Plan of Treatment Not on file documented as of this encounter Procedures Procedure Name Priority Date/Time Associated Diagnosis Comments DERMATOPATHOLOGY Routine 06/11/2023 3:33 AM PLUMBING INSTRUCTOR Neoplasm of uncertain behavior of skin documented in this encounter Results * DERMATOPATHOLOGY (06/11/2023 3:33 AM PLUMBING INSTRUCTOR) Case Report Dermatopathology Report Case: [id number] Authorizing Provider: Chapis Palencia MD Collected: 06/11/2023 03:33 AM Ordering Location: [facility] DermPath Lab Received: 06/12/2023 02:35 PM Pathologist: Nova Hannah MD Specimens: A) - Skin, upper sternum B) - Skin, left proximal posterior thigh 10:57 AM PLUMBING INSTRUCTOR DERMATOPATHOLOGY LABORATORY Final Diagnosis Specimen A. SKIN, upper sternum: LICHEN PLANUS-LIKE KERATOSIS (BENIGN LICHENOID KERATOSIS) (L82.1) Specimen B. SKIN, left proximal posterior thigh: BENIGN VERRUCOUS KERATOSIS (L82.1) 10:57 AM [facility] DERMATOPATHOLOGY LABORATORY Clinical History A: Basal Cell Carcinoma vs Sebaceous Hyperplasia B: Irritated Seborrheic Keratosis 10:57 AM [facility] DERMATOPATHOLOGY LABORATORY Gross Description Specimen A: Received is one formalin filled container labeled with the patient's name and designated upper sternum. The specimen consists of a shave biopsy measuring 8x5x1 mm. Jar 0. Specimen B: Received is one formalin filled container labeled with the patient's name and designated left proximal posterior thigh. The specimen consists of a shave biopsy measuring 9x7x2 mm. Jar 0. 10:57 AM [facility] DERMATOPATHOLOGY LABORATORY Microscopic Description Specimen A. SKIN, upper sternum: The epidermis is mildly acanthotic. There is a lichenoid infiltrate with vacuolar changes of basilar keratinocytes and scattered necrotic keratinocytes. Specimen B. SKIN, left proximal posterior thigh: Sections show hyperkeratosis, papillomatosis, hypergranulosis, and acanthosis. These histological findings can be seen in a verruca vulgaris or a seborrheic keratosis. 10:57 AM [facility] DERMATOPATHOLOGY LABORATORY Disclaimer An external and internal positive and negative controls are appropriate for the histochemical, immunohistochemical and immunofluorescence stain(s) in this case (if any), except where stated explicitly. The performance characteristics of the stain(s) cited in this report were developed and its performance characteristic determined by the Dermatopathology Laboratory at [facility], directed by Dr. Althea Chatman. These tests need not be, and therefore are not, approved by the [place] Food and Drug Administration. The tests are used for clinical purposes. Billing Codes Specimen Charges Stain Charges 27722 04134 1 1 10:57 AM [facility] DERMATOPATHOLOGY [facility]ORATORY Embedded Images 10:57 AM [facility] DERMATOPATHOLOGY LABORATORY Pathology/Cytology TISSUE SPECIMEN FROM SKIN / Unknown 06/11/2023 3:33 AM PLUMBING INSTRUCTOR 06/12/2023 2:35 PM PLUMBING INSTRUCTOR Miscellaneous samples (specimen) TISSUE SPECIMEN FROM SKIN / Unknown 06/11/2023 3:33 AM PLUMBING INSTRUCTOR 06/12/2023 2:35 PM PLUMBING INSTRUCTOR Chapis Palencia MD LAB - PATHOLOGY/CYTO LOGY ORDERABLES DERMATOPATHOLOGY LABORATORY [facility] - Department of Dermatology [facility] Medicine [address] [place] [address], [address] [phone] documented in this encounter Visit Diagnoses Diagnosis Neoplasm of uncertain behavior of skin documented in this encounter
--- OUTSIDE RECORDS SUMMARY | 2024-07-06 17:32 | XMS_ITS | Clinical Summary ---
Author Organization [facility] Address [address] [place] [phone] Care Team Providers Care Holiday Detector Operator Name Role Phone DuarteLam leroy Primary Care Provider + Allergies Active Allergy Reactions Criticality Noted Date Comments Morphine Vomiting Low 07/23/2021 Niacin Stomach upset Low 01/03/2017 Stomach/GI Upset Penicillins Rash Medium 01/03/2017 Rash Medications sak-X7-[id number]-zin o-acc-jzah-bor 600 mg calcium- 800 unit-50 mg tablet Take by mouth Active multivitamin with iron tablet Take 1 tablet by mouth daily Active calcium carbonate-vitami n D3 1,500 mg (600mg elemental) -800 unit per tablet Take 1 tablet by mouth daily 90 tablet 1 02/24/2023 Active fexofenadine (TERESA) 180 mg tablet TAKE 1 TABLET DAILY 90 tablet 3 08/06/2023 Active pravastatin (PRAVACHOL) 80 mg tablet Take 1 tablet (80 mg total) by mouth daily 90 tablet 3 08/25/2023 Active omeprazole (PriLOSEC) 20 mg capsuleIndicatio ns:Gastroesophag eal reflux disease without esophagitis Take 1 capsule (20 mg total) by mouth daily 90 capsule 3 08/25/2023 Active Active Problems Problem Noted Date Diagnosed Date Age-related osteoporosis wit hout current pathological fracture 07/23/2021 History of basal cell cancer Hyperlipidemia GERD (gastroesophageal reflux disease) Encounters Date Type Department Care Team Description 04/22/2024 1:15 PM DEAF INTERPRETER Office Visit [facility] Primary Care [address] [facility] [address] [place] [address] Lam Duarte DO Age-related osteoporosis without current pathological fracture (Primary Dx); Mixed hyperlipidemia; Gastroesophageal reflux disease without esophagitis; Class 1 obesity without serious comorbidity with body mass index (BMI) of 30.0 to 30.9 in adult, unspecified obesity type from Last 3 Months Immunizations Immunization Administration Dates Next Due Influenza, Quadrivalent, Elaina l Culture-based MDCK, Preservative Free, Antibiotic Free, Intramuscular 01/18/2020,02/20/2017 Influenza, Quadrivalent, Hig h Dose, Preservative Free, Intrr 02/24/2023,01/22/2022,01/20/2021 Influenza, Quadrivalent, Spl it, Preservative Free, Intramuscular 02/17/2018 Influenza, Trivalent, High D ose, Split, Preservative Free, Intramuscular 02/02/2024 Influenza, Trivalent, Preser vative Free, Intramuscular 03/20/2016,03/14/2015 Pneumococcal Conjugate Pcv20 08/09/2022 Tdap 03/20/2016 ZOSTER LIVE 03/20/2016 ZOSTER Recombinant 01/18/2020,05/06/2019 Surgical History Surgery Date Site/Laterality Comments HYSTERECTOMY Medical History Medical History Date Comments Hyperlipidemia GERD (gastroesophageal reflux disease) History of basal cell cancer Family History Medical History Relation Name Comments Alzheimer's disease Father Ovarian cancer Maternal Grandmother Hypertension Mother Relation Name Status Comments Father (Age 87) Maternal Grandmother Mother Alive Social History Tobacco Use Types Packs/Day Years Used Date Smoking Tobacco: Never Tobacco Cessation:Counseling Given: Not Answered PHQ-2 Answer Date Recorded PHQ-2 Total Score (If total score is 3 or more points, staff should administer the PHQ-9) 0 08/25/2023 Comments No Sex and Gender Information Value Date Recorded Sex Assigned at Not on file Legal Sex Female 5:57 AM DEAF INTERPRETER Gender Identity Not on file Sexual Orientation Straight 07/21/2021 10 :55 PM CDT Obstetrics History Para Term AB IAB SAB Ectopic Multiple Livin g Live Births 1 Date Outcome GA Total Labor Labor/2nd/3rd Weight Sex Type Anes PTL Alma A1 A5 Name Clin Last Filed Vital Signs Vital Sign Reading Time Taken Comments Blood Pressure 114/76 04/22/2024 1:01 PM DEAF INTERPRETER Pulse 78 04/22/2024 1:01 PM DEAF INTERPRETER Temperature 36.4 C (97.5 F) 04/22/2024 1:01 PM DEAF INTERPRETER Respiratory Rate 20 04/22/2024 1:01 PM DEAF INTERPRETER Oxygen Saturation 98% 04/22/2024 1:01 PM DEAF INTERPRETER Inhaled Oxygen Concentration - - Weight 82.6 kg (182 lb 1.6 oz) 04/22/2024 1:01 P M DEAF INTERPRETER Height 157.5 cm (5' 2.01 ) 04/22/2024 1:01 PM CS T Body Mass Index 33.3 04/22/2024 1:01 PM DEAF INTERPRETER Plan of Treatment Health Maintenance Due Date Last Done Comments Osteoporosis Screening-Bone Density Scan 01/09/2024 01/08/2022 Depression Screening 08/24/2024 08/25/2023, 08/09/2022, 07/23/2021 Fall Risk Assessment 08/24/2024 08/25/2023, 08/09/2022, 07/23/2021 Well Visit 65+ 08/24/2024 08/25/2023, 07/21, 07/23/2021 Breast Cancer Screening-Mammogram 01/27/2025 01/28/2024, 01/08/2022, 04/05/2015 Covid-19 Vaccine ( season) 2025 04/07/2021, 08/16/2020, 07/26/2020 Postponed from 12/21/2023 (Patient declined, but will receive in the future) Colon Cancer Screening-DNA Stool 08/21/2025 08/21/2022, 08/04/2019 DTaP/Tdap/Td Vaccine (2 - Td or Tdap) 03/20/2026 03/20/2016 Zoster Vaccine Completed 01/18/2020, 04/21, 03/20/2016 Hepatitis C Screening Completed 07/26/2021 Pneumococcal vaccine 65+ Completed 08/09/2022 Colon Cancer Screening-FIT Discontinued 08/21/2022, Hepatitis B Screening Completed 09/04/2023 Influenza Vaccine Completed 02/02/2024, , 01/22/2022, Additional history exists Procedures Procedure Name Priority Date/Time Associated Diagnosis Comments SCREENING MAMMOGRAM BILATERAL W ZACHARY Schedule Routine, Read Routine (OP Routine) 01/28/2024 2:48 PM CDT Screening mammogram, encounter for STOOL DNA COLOGUARD Routine 08/21/2022 9:45 AM CDT Colon cancer screening DEXA AXIAL SKELETON BONE DENSITY 1 OR MORE SITES Schedule Routine, Read Routine (OP Routine) 01/08/2022 2:46 PM CDT Medicare annual wellness visit, subsequent HEPATITIS C ANTIBODY Routine 07/26/2021 2:00 PM CDT from Last 3 Months or Most Recently Relevant to Health Maintenance Results * Screening Mammogram Bilateral W Zachary (01/28/2024 2:48 PM CDT) Anatomical Region Laterality Modality Breast Bilateral Mammography Impressions 01/28/2024 2:59 PM CDT BI-RADS ATLAS category (overall): 1 - Negative There is no mammographic evidence of malignancy. A 1 year screening mammogram is recommended. The patient has been or will be contacted. We recommend annual screening mammography for women at average risk of breast cancer beginning at age 40, based on guidelines of the [place] [employer] (ACR Practice Parameter for the Performance of Screening and Diagnostic Mammography) and [place] [employer]etric[employer] Gynecologists. For women with and elevated risk of breast cancer, please refer to the ACR Practice Parameter for specific screening recommendations. The patient will be entered into a reminder system with a target due date of 1 year for her next screening exam. Narrative 01/28/2024 2:59 PM CDT Screening Mammogram Bilateral W Zachary: 01/28/24 The study was acquired using full field digital technology and interpreted from soft copy. 2D digital mammographic views, as well as 3D digital tomosynthesis were performed in the CC and MLO projections. CLINICAL: Screening mammogram, encounter for. No relevant medical history has been documented for this patient. No known family history of breast cancer. COMPARISONS: 01/08/2022 SCREENING MAMMOGRAM BILATERAL W ZACHARY 07/03/2020 Breast Imaging Screening Outside Reference 02/24/2019 Breast Imaging Screening Outside Reference 04/06/2015 Screening Mammogram Bilateral W Zachary BREAST TISSUE: The breasts are heterogeneously dense, which may obscure small masses. FINDINGS: No suspicious masses, suspicious calcifications, or other suspicious findings are seen within either breast. There has been no suspicious change. us Self Screening Mammogram IMG MAMMO PROCEDURES Fi nal Result * Stool DNA - Cologuard (08/21/2022 9:45 AM CDT) Stool DNA - Cologuard Negative Negative [facility] (CLIA #:[id number]) Comment: NEGATIVE TEST RESULT. A negative Cologuard result indicates a low likelihood that a colorectal cancer (CRC) or advanced adenoma (adenomatous polyps with more advanced pre-malignant features) is present. The chance that a person with a negative Cologuard test has a colorectal cancer is less than 1 in 1500 (negative predictive value >99.9%) or has an advanced adenoma is less than 5.3% (negative predictive value 94.7%). These data are based on a prospective cross-sectional study of 10,000 individuals at average risk for colorectal cancer who were screened with both Cologuard and colonoscopy. (Justo Boone et al, N Engl J Med 2014;370(14):4855-8071) The normal value (reference range) for this assay is negative. COLOGUARD RE-SCREENING RECOMMENDATION: Periodic colorectal cancer screening is an important part of preventive healthcare for asymptomatic individuals at average risk for colorectal cancer. Following a negative Cologuard result, the [place] Cancer Society and U.S. Multi-Society Task Force screening guidelines recommend a Cologuard re-screening interval of 3 years. References: [place] [employer] Guideline for Colorectal Cancer Screening: https://www.cancer.org/cancer/jisvt-dnirss-tbldjk/bnicgcbsh-ytunwpbto-hirdzym/ac s-rec ommendations.html.; Garret MATHEWS, Carmencita FIELDS, Bella LARSEN, Colorectal Cancer Screening: Recommendations for Physicians and Patients from the U.S. Multi-Society Task Force on Colorectal Cancer Screening , Am J Gastroenterology 2017; 112:3613-6328. TEST DESCRIPTION: Composite algorithmic analysis of stool DNA-biomarkers with hemoglobin immunoassay. Quantitative values of individual biomarkers are not reportable and are not associated with individual biomarker result reference ranges. Cologuard is intended for colorectal cancer screening of adults of either sex, 45 years or older, who are at average-risk for colorectal cancer (CRC). Cologuard has been approved for use by the U.S. FDA. The performance of Cologuard was established in a cross sectional study of average-risk adults aged 50-84. Cologuard performance in patients ages 45 to 49 years was estimated by sub-group analysis of near-age groups. Colonoscopies performed for a positive result may find as the most clinically significant lesion: colorectal cancer [4.0%], advanced adenoma (including sessile serrated polyps greater than or equal to 1cm diameter) [20%] or non- advanced adenoma [31%]; or no colorectal neoplasia [45%]. These estimates are derived from a prospective cross-sectional screening study of 10,000 individuals at average risk for colorectal cancer who were screened with both Cologuard and colonoscopy. (Justo Case al, N Engl J Med 2014;370(14):9299-1465.) Cologuard may produce a false negative or false positive result (no colorectal cancer or precancerous polyp present at colonoscopy follow up). A negative Cologuard test result does not guarantee the absence of CRC or advanced adenoma (pre-cancer). The current Cologuard screening interval is every 3 years. ([place] Cancer Society and U.S. Multi-Society Task Force). Cologuard performance data in a 10,000 patient pivotal study using colonoscopy as the reference method can be accessed at the following location: www.SanFranSEO/results. Additional description of the Cologuard test process, warnings and precautions can be found at www.Acrolinxrd.com. Stool 08/21/2022 9:45 AM CDT 08/22/2022 5:16 PM CDT us Lam Duarte DO LAB BODY FLUIDS AND STOO LS ORDERABLES Final Result [facility] (CLIA #:[id number]) [place] [address] * Dexa Axial Skeleton Bone Density 1 Or 2 Site (01/08/2022 2:46 PM CDT) Anatomical Region Laterality Modality Body N/A Mammography 01/09/2022 6:11 PM CDT Narrative 01/09/2022 6:19 PM CDT EXAM DESCRIPTION: DEXA AXIAL SKELETON BONE DENSITY 1 OR MORE SITES REASON FOR STUDY: 66 y/o year old F with given history of screening. 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 FINDINGS: AP LUMBAR SPINE L1-L4: Total BMD is 0.852 g/cm2 T-score is -1.8 LEFT HIP: Total BMD is 0.921 g/cm2 T-score is -0.2 Femoral neck BMD is 0.744 g/cm2 T-score is -0.9 FRAX: 10 year risk for a major osteoporotic fracture is 7.6 %, 10 year risk for a hip fracture is 0.5 % IMPRESSION: Based on the lumbar spine bone mineral density (T-score -1.8 ) the patient has low bone mass . REFERENCE: Bone mineral density: Normal (T-score above or = -1.0) Low bone mass (T-score between -1.0 and -2.5) replaces the previously used term osteopenia Osteoporosis (T-score = or below -2.5) Medical evaluation for secondary causes of low bone mineral density may be appropriate. FRAX is a World Health Organization validated fracture risk assessment tool that calculates a person's 10 year probability of a major osteoporosis related fracture and hip fracture. According to the National Osteoporosis Foundation guidelines, postmenopausal women and men age 50 or older with low bone mass and a 10 year probability of a major osteoporosis related fracture = or greater than 20% or a 10 year probability of a hip fracture = or greater than 3% should be considered for treatment. For further information, including treatment recommendations, please refer to the 2013 ISCD Official Positions (http://www.iscd.org) and the NOF's Clinician's Guide to Prevention and Treatment of Osteoporosis (http://www.nof.org/professionals/clinical-guidelines) THIS IS AN ELECTRONICALLY VERIFIED FINAL REPORT 01/09/2022 6:19 PM - Electronically signed by Seven Portillo M.D. MF: NICOLÁS Report ID: [id number] Reading Location: [place] [address] Procedure Note Seven Portillo MD - 01/09/2022 EXAM DESCRIPTION: DEXA AXIAL SKELETON BONE DENSITY 1 OR MORE SITES REASON FOR STUDY: 66 y/o year old F with given history ofscreening. 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 FINDINGS: AP LUMBAR SPINE L1-L4: Total BMD is 0.852 g/cm2 T-score is -1.8 LEFT HIP: Total BMD is 0.921 g/cm2 T-score is -0.2 Femoral neck BMD is 0.744 g/cm2 T-score is -0.9 FRAX: 10 year risk for a major osteoporotic fracture is 7.6 %, 10 year risk fora hip fracture is 0.5 % IMPRESSION: Based on the lumbar spine bone mineral density (T-score-1.8 ) the patient has low bone mass . REFERENCE: Bone mineral density: Normal (T-score above or = -1.0) Low bone mass (T-score between -1.0 and -2.5) replaces thepreviously used term osteopenia Osteoporosis (T-score = or below -2.5) Medical evaluation for secondary causes of low bone mineral density may be appropriate. FRAX is a World Health Organization validated fracture risk assessmenttool that calculates a person's 10 year probability of a major osteoporosisrelated fracture and hip fracture. According to the National OsteoporosisFoundation guidelines, postmenopausal women and men age 50 or older with low bonemass and a 10 year probability of a major osteoporosis related fracture = or greater than 20% or a 10 year probability of a hip fracture = or greaterthan 3% should be considered for treatment. For further information, including treatment recommendations, please referto the 2013 ISCD Official Positions (http://www.iscd.org) and the NOF's Clinician's Guide to Prevention and Treatment of Osteoporosis (http://www.nof.org/professionals/clinical-guidelines) THIS IS AN ELECTRONICALLY VERIFIED FINAL REPORT 01/09/2022 6:19 PM - Electronically signed by Seven Portillo M.D. MF: NICOLÁS Report ID: [id number] Reading Location: [id number] Lam Duarte DO IMG DXA PROCEDURES Final Result * Hepatitis C antibody (07/26/2021 2:00 PM CDT) Hep C Ab NON-REACTI VE NON-REACT LAYNE [facility] SIGNAL TO CUT-OFF 0.02 <1.00 [facility] Comment: HCV antibody was non-reactive. There is no laboratory evidence of HCV infection. In most cases, no further action is required. However, if recent HCV exposure is suspected, a test for HCV RNA (test code 87271) is suggested. For additional information please refer to http://education.Webstep/faq/LIJ45m4 (This link is being provided for informational/ educational purposes only.) 07/26/2021 2:00 PM CDT 07/26/2021 2:03 PM CDT Narrative [facility] - 07/27/2021 10:40 AM CDT FASTING:YES FASTING: YES Lam Duarte DO LAB MICROBIOLOGY - GENER AL ORDERABLES Final Result [facility] [address] [address] [id number] from Last 3 Months or Most Recently Relevant to Health Maintenance Insurance MEDICARE Member Subscriber Plan / Payer (Ef fective 2020-Present) Name:Ailyn Vargas Moriah Member ID:[id number] Relation to Subscriber:Self Name:Ailyn Vargas Moriah Subscriber ID:[id number] Payer ID:[id number] Group ID:Not on file Type:MEDICARE TRADITIONAL Address: [address] [place] [phone] FOR LIFE MEDICARE FOR LIFE Care Teams Holiday Detector Operator Relationship Specialty [place] [address] [place] [phone] PCP - General Family Medicine 07/23/21
--- OUTSIDE RECORDS SUMMARY | 2024-07-06 17:32 | XMS_ITS | Referral Summary ---
Author Organization [facility] at the Medical Office Building Address [address] [place] [phone] Care Team Providers Care Speech Scientist Name Role Phone Lam Duarte DO Primary Care Provider + Encounters Date Type Department Care Team Description 04/22/2024 1:15 PM ELEVATOR TROUBLESHOOTER Office Visit [facility] Primary Care [address] [place] [address] [address] [place] [address] Lam Duarte DO Age-related osteoporosis without current pathological fracture (Primary Dx); Mixed hyperlipidemia; Gastroesophageal reflux disease without esophagitis; Class 1 obesity without serious comorbidity with body mass index (BMI) of 30.0 to 30.9 in adult, unspecified obesity type from Last 3 Months Allergies Active Allergy Reactions Criticality Noted Date Comments Morphine Vomiting Low 07/23/2021 Niacin Stomach upset Low 01/03/2017 Stomach/GI Upset Penicillins Rash Medium 01/03/2017 Rash Medications taj-A2-jjq83-zin z-jbf-zbod-bor 600 mg calcium- 800 unit-50 mg tablet [...] cell cancer Hyperlipidemia GERD (gastroesophageal reflux disease) Immunizations Immunization Administration Dates Next Due Influenza, [...] 03/20/2016 ZOSTER LIVE 03/20/2016 ZOSTER Recombinant 01/18/2020,05/06/2019 Social History Tobacco Use Types Packs/Day Years Used Date Smoking Tobacco: Never Tobacco Cessation:Counseling Given: Not Answered PHQ-2 Answer Date Recorded PHQ-2 Total Score (If total score is 3 or more points, staff should administer the PHQ-9) 0 08/25/2023 Comments No Sex and Gender Information Value Date Recorded Sex Assigned at Not on file Legal Sex Female 5:57 AM ELEVATOR TROUBLESHOOTER Gender Identity Not on file Sexual Orientation Straight 07/21/2021 10 :55 PM CDT Last Filed Vital Signs Vital Sign Reading Time Taken Comments Blood Pressure 114/76 04/22/2024 1:01 PM ELEVATOR TROUBLESHOOTER Pulse 78 04/22/2024 1:01 PM ELEVATOR TROUBLESHOOTER Temperature 36.4 C (97.5 F) 04/22/2024 1:01 PM ELEVATOR TROUBLESHOOTER Respiratory Rate 20 04/22/2024 1:01 PM ELEVATOR TROUBLESHOOTER Oxygen Saturation 98% 04/22/2024 1:01 PM ELEVATOR TROUBLESHOOTER Inhaled Oxygen Concentration - - Weight 82.6 kg (182 lb 1.6 oz) 04/22/2024 1:01 P M ELEVATOR TROUBLESHOOTER Height 157.5 cm (5' 2.01 ) 04/22/2024 1:01 PM CS T Body Mass Index 33.3 04/22/2024 1:01 PM ELEVATOR TROUBLESHOOTER Plan of Treatment Not on file Procedures Procedure Name Priority Date/Time Associated Diagnosis [...] age 40, based on guidelines of the [place] [employer] (ACR Practice Parameter for the Performance of Screening and Diagnostic Mammography) and [place] College [employer] Obstetricians and Gynecologists. For women [...] CDT) Stool DNA - Cologuard Negative Negative [facility] (CLIA #:[id number]) Comment: NEGATIVE TEST RESULT. A negative Cologuard [...] Boone et al, N Engl J Med 2014;370(14):1786-1910) The normal value (reference range) for this assay is negative. COLOGUARD RE-SCREENING RECOMMENDATION: Periodic colorectal cancer screening is an important part of preventive healthcare for asymptomatic individuals at average risk for colorectal cancer. Following a negative Cologuard result, the [place] Cancer Society and U.S. Multi-Society Task Force screening guidelines recommend a Cologuard re-screening interval of 3 years. References: [place] Cancer Society Guideline for Colorectal Cancer Screening: https://www.cancer.org/cancer/ewcuu-bvllyw-roiydm/qgvdammpx-xvztwztik-ejyudco/ac s-rec ommendations.html.; Garret MATHEWS, Carmencita FIELDS, Bella LARSEN, Colorectal Cancer Screening: Recommendations for Physicians and Patients from the U.S. Multi-Society Task Force on Colorectal Cancer Screening , Am J Gastroenterology 2017; 112:7077-7038. TEST DESCRIPTION: Composite algorithmic analysis of stool [...] screened with both Cologuard and colonoscopy. (Justo Henriquez. et al, N Engl J Med 2014;370(14):0966-8619.) Cologuard may produce a false negative or false positive result (no colorectal cancer or precancerous polyp present at colonoscopy follow up). A negative Cologuard test result does not guarantee the absence of CRC or advanced adenoma (pre-cancer). The current Cologuard screening interval is every 3 years. ([place] Cancer Society and U.S. Multi-Society Task Force). Cologuard performance data in a 10,000 patient pivotal study using colonoscopy as the reference method can be accessed at the following location: www.Moonbasa/results. Additional description of the Cologuard test process, warnings and precautions can be found at www.WaynautogGlassdoorrd.Fineline. Stool 08/21/2022 9:45 AM CDT 08/22/2022 5:16 PM CDT Lam Duarte DO LAB BODY FLUIDS AND STOO LS ORDERABLES Final Result [facility] (CLIA #:[id number]) [place] [address] * Dexa Axial Skeleton Bone Density 1 Or 2 Site (01/08/2022 2:46 PM CDT) Anatomical Region Laterality Modality Body N/A Mammography 01/09/2022 6:11 PM CDT Narrative 01/09/2022 6:19 PM CDT EXAM DESCRIPTION: DEXA AXIAL SKELETON BONE DENSITY 1 OR MORE SITES REASON FOR STUDY: 66 y/o year old F with given history of screening. 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 MF: NICOLÁS Report ID: [id number] Reading Location: [place] [address] Procedure Note Seven Portillo MD - 01/09/2022 EXAM DESCRIPTION: DEXA AXIAL SKELETON BONE DENSITY 1 OR MORE SITES REASON FOR STUDY: 66 y/o year old F with given history ofscreening. 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 MF: NICOLÁS Report ID: [id number] Reading Location: [place] [address] Lam Duarte DO IMG DXA PROCEDURES Final [...] a test for HCV RNA (test code 33784) is suggested. For additional information please refer to http://education.IntroFly/faq/HQM74a3 (This link is being provided for informational/ educational purposes only.) 07/26/2021 2:00 PM CDT 07/26/2021 2:03 PM CDT Narrative [facility] - 07/27/2021 10:40 AM CDT FASTING:YES FASTING: YES Lam Duarte DO LAB MICROBIOLOGY - GENER AL ORDERABLES Final Result [facility] [address] [address] [id number] from Last 3 Months or Most Recently Relevant to Health Maintenance Insurance MEDICARE FOR LIFE MEDICARE FOR LIFE Care Teams Speech Scientist Relationship Specialty Start Date End Date Lam Duarte DO [address] [phone] PCP - General Family Medicine 07/23/21
== END 2024-07-06 15:33 | disposition home or self-care (01) ==
PROVIDERS: PCP Family Medicine; Visit Provider Physician Assistant
DX: N20.0 Calculus of kidney (principal); N28.89 Other specified disorders of kidney and ureter
CPT/HCPCS: 74018

== ENCOUNTER 2024-08-11 15:38 | Outpatient (CLI) | payer MEDICARE, OTHER, SELFPAY ==
--- NOTE | ~2024-08-11 | CT_ITS ---
CLINICAL INDICATION: Follow-up kidney stones COMPARISON: 01/11/2021. Reference is also made to multiple plain film evaluations of the abdomen performed most recently on and dating back to 01/23/2021. TECHNIQUE: Multiple contiguous axial images of the abdomen and pelvis were performed without the admi nistration of intravenous contrast The dose-length product (DLP) was 272.23 mGy-cm. Automated exposure control and iterative reconstruction technique were employed. FINDINGS/OBSERVATIONS: Visualized lower thorax: The bilateral lung bases are clear. The heart is of normal size, without pericardial effusion. Large hiatal hernia is redemonstrated Liver: The liver demonstrates homogeneous attenuation and is not enlarged. Gallbladder and biliary system: The gallbladder is only minimally distended, and otherwise unremarkable. Pancreas: Limited evaluation of the pancreas secondary to the lack of intravenous contrast. Spleen: The spleen demonstrates homogeneous attenuation and is not enlarged. Kidneys: Two stones are identified within the right kidney. Both are located within the lower pole measuring 3.3 and 3.1 mm. Within the lower pole of the left kidney is a 3.4 mm nonobstructing calculus. No additional stones are identified within bilateral kidneys. No hydronephrosis is present. Adrenal glands: Unremarkable. Gastrointestinal tract: Fecal stasis within the colon. Appendix: The air-filled appendix is of normal caliber (axial series, images 120 through 127). Vasculature: Unremarkable. Lymph nodes: Limited evaluation without intravenous contrast Pelvic structures: The bladder is decompressed, limiting its evaluation. The uterus is either surgically absent or markedly atrophic. Body wall and musculoskeletal: Small fat-containing umbilical hernia. Age-appropriate degenerative disease within the lumbosacral spine. IMPRESSION: Bilateral nonobstructing renal calculi, measuring 3.1 and 3.3 mm on the right, and 3.4 mm on the left . Large hiatal hernia. Reviewed, dictated and finalized at location A. IMPRESSION: Bilateral nonobstructing renal calculi, measuring 3.1 and 3.3 mm on the right, and 3.4 mm on the left. Large hiatal hernia.
--- OUTSIDE RECORDS SUMMARY | 2024-08-11 17:26 | XMS_ITS | Encounter Summary ---
Author Organization [facility] Healthcare Address [address] [place] [address] Care Team Providers Care Photography Editor Name Role Phone Lam Duarte DO Primary Care Provider + Encounter Details Date Type Department Care Team ([facility] st Contact Info) Description 12/09/2023 Orders Only [facility] Health Information Management [address] [place] [id number] Lam Duarte DO [facility] [address] [address] Social History Tobacco Use Types Packs/Day Years Used Date Smoking Tobacco: Never PHQ-2 Answer Date Recorded PHQ-2 Total Score (If total score is 3 or more points, staff should administer the PHQ-9) 0 08/25/2023 Comments No Sex and Gender Information Value Date Recorded Sex Assigned at Not on file Legal Sex Female 5:57 AM [employer] Gender Identity Not on file Sexual Orientation [...] on filedocumented in this encounter Care Teams Photography Editor Relationship Specialty Start Date End Date Lam Duarte DO [facility] [address] [phone] PCP - General Family Medicine 07/23/21 documented as of this encounter
--- OUTSIDE RECORDS SUMMARY | 2024-08-11 17:26 | XMS_ITS | Continuity of Care Document ---
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 poss sinus infecti on/ears feel clogged [phone] DARSHANA RUVALCABA 10/31 Released w/o Limitations [address] [place] [address] Atilio CHIQUIB ([facility])(S cott OF FAMRES Tm Blue) [address] [place] [address] [employer] ([facility])(Sco tt [facility] Fam Res Tm Green) TELE CONSULT [id number] needs new script [phone] JANY CASAREZ 11/[address] [place] [address] [employer] ([facility])(S cott OF Fam Res Tm Green) [address] [place] [address] [employer] ([facility])(Sco tt OF Fam Res Tm Green) TELE CONSULT [id number] med refill, contact #: [phone] xc [phone] JANY CASAREZ 01/[address] [place] [address] [employer] ([facility])(S cott OF Fam Res Tm Green) [address] [place] [address] [employer] [facility])(Sco tt [facility] Fam Res Tm Green) TELE CONSULT [id number] lab results JANY CASAREZ 02/[address] [place] [address] Atilio RODRIGUEZ [facility])(S cott [facility] Fam Res Tm Green) [address] [place] [address] [facility]Sco tt [facility] Fam Res Tm Green) OUTPATIENT [id number] back pain; medicat ions [phone] MABLE COLEMAN 05/15 Released w/o Limitations [address] [place] [address] Atilio RODRIGUEZ ([facility])(S cott [facility] Fam Res Tm Green) [address] [place] [address] Atilio [facility])(Sco tt [facility] Fam Res Tm Green) TELE CONSULT [id number] Notes Entered by: Heather MURRIETA 30 May 2011 1604 ------- ------- ------- ------- -- Lab f/u MABLE COLEMAN 05/[address] [place] [address] Atilio RODRIGUEZ [facility])(S cott [facility] Fam Res Tm Green) [address] [place] [address] [facility]Sco tt [facility] Fam Res Tm Green) TELE CONSULT [id number] Notes Entered by: GORAN ROSS 01 Jul 2011 1606 ------- ------- ------- ------- -- Med renewal /Sensin adali/ 667.743 4/mn MABLE COLEMAN 06/[address] [place] [address] Atilio RODRIGUEZ [facility]S cott [facility] Fam Res Tm Green) [address] [place] [address] [facility]Sco tt [facility] Fam Res Tm Green) TELE CONSULT [id number] Notes Entered by: KUMAR BOSWELL 09 Jul 2011 1255 ------- ------- ------- ------- -- Tcon for referra heather juárez ph [phone] [facility] [phone] MIRYAM COREAS 07/[address] [place] [address] Atilio RODRIGUEZ [facility])(S cott [facility] Fam Res Tm Green) [address] [place] [address] [facility]co tt [facility] Fam Res Tm Green) TELE CONSULT [id number] Notes Entered by: KUMAR BOSWELL 08 Aug 2011 1523 ------- ------- ------- ------- -- Tcon for for call back Dr Donny juárez ph [phone] MIRYAM Dsouza 08/[address] [place] [address] Atilio CHIQUIKala ([facility])(S cott [facility] Fam Res Tm Green) [address] [place] [address] Atilio CHIQUIKala ([facility])(Sco tt [facility] Fam Res Tm Green) OUTPATIENT [id number] cough/c ongesti on [phone] KITTY GARNETT 08/08 Released w/o Limitations [address] [place] [address] Atilio CHIQUIKala [facility])(S cott [facility] Fam Res Tm Green) [address] [place] [address] Atilio CHIQUIKala [facility])(Sco tt [facility] Res Tm Green) TELE CONSULT [id number] Notes Entered by: MALLY CHAPMAN 26 Nov 2011 1146 ------- ------- ------- ------- -- Rx Refill and Lab Results /Sensin tafbenson/ [id number] -3214/K MR MABLE COLEMAN 11/[address] [place] [address] Atilio CHIQUIKala [facility])(S cott [facility] Fam Res Tm Green) [address] [place] [address] Atilio CHIQUIKala [facility])(Sco tt [facility] Fam Res Tm Green) TELE CONSULT [id number] Notes Entered by: GEOVANI JONES 15 Jan 2012 1405 ------- ------- ------- ------- -- Ear Pressur e-Sensi sukhwinder /[phone] 14/MIRYAM Clements 01/[address] [place] [address] Atilio CHIQUIKala [facility])(S cott [facility] Fam Res Tm Green) [address] [place] [address] Atilio CHIQUIKala [facility])(Sco tt [facility] Fam Res Tm Green) OUTPATIENT [id number] bilat ear pressur e [phone] MARCI OGDEN 01/16 Released w/o Limitations [address] [place] [address] Atilio CHIQUIKala [facility])(S [facility] Fam Res Tm Green) [address] [place] [address] Atilio RODRIGUEZ [facility])(Sco tt [facility] Fam Res Tm Green) TELE CONSULT [id number] Notes Entered by: Heather MURRIETA 06 Mar 2012 1719 ------- ------- ------- ------- -- Labs MABLE COLEMAN 03/[address] [place] [address] Atilio RODRIGUEZ [facility])(S cott [facility] Fam Res Tm Green) [address] [place] [address] Atilio RODRIGUEZ [facility])(Sco tt [facility] Fam Res Tm Green) TELE CONSULT [id number] CAMILLE VINCENT 04/[address] [place] [address] Atilio RODRIGUEZ [facility])(S [facility] Fam Res Tm Green) [address] [place] [address] Atilio RODRIGUEZ [facility])(All ergy Resource Sharing) OUTPATIENT [id number] Allergi c RONNIE Shaw 06/11 Released w/o Limitations [address] [place] [address] Atilio RODRIGUEZ [facility])(A [employer] Resourc e Sharing ) [address] [place] [address] Atilio RODRIGUEZ [facility])(All ergy Resource Sharing) TELE CONSULT [id number] Notes Entered by: ZOILA NICHOLE 02 Jul 2012 1451 ------- ------- ------- ------- -- Network Results -OTORHI NOLARY 06/30/12 RONNIE ROSE 07/[address] [place] [address] Atilio RODRIGUEZ ([facility])(A llergy Resourc e Sharing ) [address] [place] [address] Atilio RODRIGUEZ [facility])(Sco tt [facility] Fam Res Tm Green) TELE CONSULT [id number] Notes Entered by: RADHA HERNANDEZ 05 Aug 2012 1039 ------- ------- ------- ------- -- Labs, Med refill Donny juárez / [phone] MABLE COLEMAN 08/[address] [place] [address] Atilio RODRIGUEZ [facility])(S cott [facility] Fam Res Tm Green) [address] [place] [address] Atilio RODRIGUEZ [facility])(Sco tt [facility] Fam Res Tm Green) TELE CONSULT [id number] Notes Entered by: Heather MURRIETA 31 Aug 2012 1608 ------- ------- ------- ------- -- F/u labs MABLE COLEMAN 08/[address] [place] [address] Atilio RODRIGUEZ ([facility]S cott [facility] Fam Res Tm Green) [address] [place] [address] Atilio FLORIANB ([facility])(Sco tt [facility] Fam Res Tm Green) OUTPATIENT [id number] lt. foot itch x6 months MOLLY MEIER 09/17 Released w/o Limitations [address] [place] [address] Atilio FLORIANB [facility])(S cott [facility] Fam Res Tm Green) [address] [place] [address] Atilio FLORIANB [facility])(Film Sorter ecology) OUTPATIENT [id number] Well women's exam [phone] CHIKI AZAR 09/21 Released w/o Limitations [address] [place] [address] Atilio FLORIANB [facility])(G ynecolo gy) [address] [place] [address] Atilio FLORIANB [facility])(Film Sorter ecology) TELE CONSULT [id number] Notes Entered by: CHIKI AZAR 22 Sep 2012 0647 ------- ------- ------- ------- -- BMD result: nenao JIM Luna 09/[address] [place] [address] Atilio RODRIGUEZ [facility])(G ynecolo gy) [address] [place] [address] Atilio FLORIANB [facility])(Sco tt [facility] Fam Res Tm Green) TELE CONSULT [id number] Notes Entered by: Trudi SHAH 19 Apr 2013 1429 ------- ------- ------- ------- -- Med refill Dr Irizarry CAMILLE VINCENT 04/[address] [place] [address] Atilio FLORIANB [facility])(S cott [facility] Fam Res Tm Green) [address] [place] [address] Atilio FLORIANB [facility])(Sco tt [facility] Fam Res Tm Red) TELE CONSULT [id number] Notes Entered by: RADHA HERNANDEZ 27 May 2013 1558 ------- ------- ------- ------- -- Test results Sensint affar [phone] 4 ASHISH CASTILLO 05/[address] [place] [address] Atilio FLORIANB [facility])(S [facility] Fam Res Tm Red) [address] [place] [address] Atilio B [facility])(Film Sorter ecology) TELE CONSULT [id number] Notes Entered by: KAVYA BEVERLY 08 Jun 2013 1533 ------- ------- ------- ------- -- Vitamin D refill request - JIM Gibbons 06/[address] [place] [address] Atilio FLORIANB [facility])(G ynecolo gy) [address] [place] [address] Aitlio FLORIANB [facility])(Sco tt [facility] Fam Res Tm Red) OUTPATIENT [id number] skin check below neck/ab ove chest [id number] SHERLY MCCLAIN 08/12 Released w/o Limitations [address] [place] [address] Atilio FLORIANB [facility])(S [facility] Fam Res Tm Red) [address] [place] [address] Atilio FLORIANB [facility])(Sco tt [facility] Fam Res Tm Red) TELE CONSULT [id number] Notes Entered by: Trudi SHAH 25 Aug 2013 1422 ------- ------- ------- ------- -- Med refill Dr Irizarry 667.743 4 FREEDOM SANABRIA 08/[address] [place] [address] Atilio FLORIANB ([facility])(S [facility] Fam Res Tm Red) [address] [place] [address] Atilio FLORIANB [facility])(Film Sorter ecology) OUTPATIENT [id number] wwe [id number] CHIKI AZAR 09/23 Released w/o Limitations [address] [place] [address] [employer] ([facility])(G ynecolo gy) [address] [place] [address] [employer] [facility])(Sco tt [facility] Fam Res Tm Gold) TELE CONSULT [id number] Notes Entered by: MARIE RICE 25 Nov 2013 1508 ------- ------- ------- ------- -- Med refill/ kayleen 18.666. 7434 ANA MARIA HERNANDEZ 11/[address] [place] [address] Atilio [facility])(S cott [facility] Fam Res Tm Gold) [address] [place] [address] Atilio [facility])([facility] Fam Res Tm Red) OUTPATIENT [id number] skin check/6 18.667. 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 /Leigh/ [phone] or [phone] MIRYAM COREAS 01/[address] [place] [address] Atilio [facility])(S [facility] Fam Res Tm Red) [address] [place] [address] Atilio [facility])([facility] Fam Res Tm Red) TELE CONSULT [id number] Notes Entered by: Trudi SHAH 09 Jun 2014 1210 ------- ------- ------- ------- -- Molina Merino MERRITT MERINO 06/[address] [place] [address] [facility]S [facility] Fam Res Tm Red) [address] [place] [address] [facility] Fam Res Tm Red) TELE CONSULT [id number] Notes Entered by: Claire SHAH 11 Aug 2014 1201 ------- ------- ------- ------- -- Lab order to check cholest camilo and liver and mammogr am referra heather/Leigh /[id number] MIRYAM COREAS 08/[address] [place] [address] [facility]S [facility] Fam Res Tm Red) [address] [place] [address] [facility])([facility] Fam Res Tm Red) TELE CONSULT [id number] Notes Entered by: MARIE RICE 16 Aug 2014 1206 ------- ------- ------- ------- -- Lab request /leigh/ ana # MIRYAM COREAS 08/[address] [place] [address] Atilio [facility])(S cott [facility] Fam Res Tm Red) [address] [place] [address] Atilio FLORIANB [facility])(Sco tt [facility] Fam Res Tm Red) OUTPATIENT [id number] f/u on test results and referra l - [id number] SHERLY MCCLAIN 09/20 Released w/o Limitations [address] [place] [address] Atilio B [facility])(S cott [facility] Fam Res Tm Red) [address] [place] [address] Atilio FLORIANB [facility])(Sco tt [facility] Fam Res Tm Red) TELE CONSULT [id number] Notes Entered by: PREMA SANFORD ELS 18 Oct 2014 1305 ------- ------- ------- ------- -- Med Renewal //Leigh //667.7 434 MERRITT MERINO 10/[address] [place] [address] Atilio [facility])(S [facility] Fam Res Tm Red) [address] [place] [address] [facility]Sco tt [facility] Fam Res Tm Red) TELE CONSULT [id number] Notes Entered by: PREMA SANFORD ELS 01 Nov 2014 1313 ------- ------- ------- ------- -- Med Renewal //Leigh //667.7 434 MERRITT MERINO 11/[address] [place] [address] Atilio FLORIANB [facility])(S [facility] Fam Res Tm Red) [address] [place] [address] Atilio FLORIANB [facility])(Sco tt [facility] FAMRES Tm Blue) TELE CONSULT [id number] MERRITT MERINO 02/[address] [place] [address] Atilio FLORIANB [facility])(S [facility] FAMRES Tm Blue) [address] [place] [address] Atilio B [facility])(Film Sorter ecology) OUTPATIENT [id number] [facility], [phone] NIKIA WELCH 02/14 Released w/o Limitations [address] [place] [address])(G ynecolo gy) [address] [place] [address] Atilio [facility])(Film Sorter ecology) TELE CONSULT [id number] Notes Entered by: NIDIA WELCH 23 Feb 2015 0808 ------- ------- ------- ------- -- BMD results JIM BEVERLY 02/[address] [place] [address] Atilio [facility])(G ynecolo gy) [address] [place] [address] Atilio [facility])(Sco tt [facility] Fam Res Tm Red) OUTPATIENT [id number] follow up medicat MERRITT Michael 03/31 Released w/o Limitations [address] [place] [address])(S cott [facility] Fam Res Tm Red) [address] [place] [address])(Film Sorter ecology) TELE CONSULT [id number] Notes Entered by: JOBY TYSON 07 Apr 2015 1505 ------- ------- ------- ------- -- Network Results -RADIOL OGY 5 SDG NIKIA WELCH 04/[address] [place] [address])(G ynecolo gy) [address] [place] [address] Atilio [facility])(Sco tt [facility] Fam Res Tm Red) TELE CONSULT [id number] Notes Entered by: Claire SHAH 17 May 2015 1435 ------- ------- ------- ------- -- Med selina /Leigh/ [phone] MIRYAM COREAS 05/[address] [place] [address])(S cott [facility] Fam Res Tm Red) [address] [place] [address])(Sco tt [facility] FAMRES Tm Blue) TELE CONSULT [id number] Notes Entered by: JANY NAVARRO 06 Jul 2015 1128 ------- ------- ------- ------- -- Network Results - DERMATO LOGY - 07/05/15 MERRITT WYMAN 07/[address] [place] [address] [facility] [place] [facility] Tm Blue) [address] [place] [address] Atilio [facility])(Med ication Refill Clinic) TELE CONSULT [id number] Notes Entered by: TIARA WHELAN 27 Oct 2015 1458 ------- ------- ------- ------- -- Med Renewal / Leigh / or SOLANGE HARRIS 10/[address] [place] [address] Atilio [facility])(Katie melendez on Refill Clinic) [address] [place] [address])([facility] Fam Res Tm Red) OUTPATIENT [id number] annual check up MERRITT MERINO 03/19 Released w/o Limitations [address] [place] [address] Atilio [facility])(S [facility] Fam Res Tm Red) [address] [place] [address] Atilio [facility])([facility] Fam Res Tm Red) TELE CONSULT [id number] Notes Entered by: GORAN ROSS 13 Jun 2016 1429 ------- ------- ------- ------- -- SX -multip le sx med req/smi /[phone] * MIRYAM COREAS 06/[address] [place] [address] Atilio [facility])(S [facility] Fam Res Tm Red) [address] [place] [address] Atilio [facility])(Med ication Refill Clinic) TELE CONSULT [id number] Notes Entered by: GABBI MARADIAGA 05 Aug 2016 1418 ------- ------- ------- ------- -- Med Renewal /LEIGH/ [phone] REESE Kaur 08/05 Referred for Appointment [address] [place] [address] Atilio [facility])(Katie melendez on Refill Clinic) [address] [place] [address] Atilio [facility])(Sco tt [facility] Fam Res Tm Red) TELE CONSULT [id number] Notes Entered by: KALINA LOJA 28 Aug 2016 1526 ------- ------- ------- ------- -- SX - Symptom s of UTI / Lab Results / Leigh / [id number] / [phone] - sgj MIRYAM COREAS 08/[address] [place] [address])(S cott [facility] Fam Res Tm Red) [address] [place] [address])(Med ication Refill Clinic) TELE CONSULT [id number] Notes Entered by: KALINA LOJA 28 Aug 2016 1531 ------- ------- ------- ------- -- Med Renewal / Leigh / [phone] / [phone] - sgj MIRYAM COREAS 08/[address] [place] [address])(M edicati on Refill Clinic) [address] [place] [address])([employer]) OUTPATIENT [id number] [facility] [phone] GRACIE NOYOLA 09/18 Released w/o Limitations [address] [place] [address])(Mary zhou) [address] [place] [address])([employer]) TELE CONSULT [id number] Notes Entered by: DOTTIE HANNON 27 Sep 2016 0835 ------- ------- ------- ------- -- Nml Lab Results CLOVIS HANNON 09/27 Referred for Appointment [address] [place] [address])(Mary zhou) [address] [place] [address])([employer]) TELE CONSULT [id number] Notes Entered by: ZELDA NOYOLA 02 Oct 2016 1646 ------- ------- ------- ------- -- results JIM BEVERLY 10/[address] [place] [address])(G ynecolo gy) [address] [place] [address] [facility])([employer]) OUTPATIENT [id number] discuss tx options possibl e hystere ctomy ELMO NAVAS 10/10 Released w/o Limitations [address] [place] [address] [facility]til[facility])(G ynecolo gy) [address] [place] [address])([employer]) TELE CONSULT [id number] Notes Entered by: Heather CALDERON 05 Dec 2016 1423 ------- ------- ------- ------- -- JIM Mejia 12/[address] [place] [address] Atilio [facility])(G ynecolo gy) [address] [place] [address])([employer]) TELE CONSULT [id number] Notes Entered by: Betsy VAZQUEZ 09 Dec 2016 1445 ------- ------- ------- ------- -- GRACE Austin 12/[address] [place] [address])(G ynecolo gy) [address] [place] [address])(Ob/ Film 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) TELE CONSULT [id number] Notes Entered by: KHAI PARKER 03 Jan 2017 1354 ------- ------- ------- ------- -- Network results 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 017and 12/26/19 17 ELMO BURRELL 01/[address] [place] [address] Atilio [facility])(O b/Film Sorter) [address] [place] [address])(Sco tt [facility] Fam Res Pineda Navas) TELE CONSULT [id number] Notes Entered by: KALINA LOJA 14 Jan 2017 1527 ------- ------- ------- ------- -- F/U after Surgery / Leigh / - sgj MIRYAM COREAS 01/[address] [place], [place] [address]B [facility])(S cott [facility] Fam Res Tm Green) [address] [place] [address] Atilio RODRIGUEZ [facility])(Sco tt [facility] Fam Res Tm Green) OUTPATIENT [id number] f/u w/ pcm: s/p hystere ctomy Sep MERRITT MERINO 01/21 Released w/o Limitations [address] [place] [address] Atilio RODRIGUEZ [facility])(S cott [facility] Fam Res Tm Green) [address] [place] [address] Atilio [facility])(Med ication Refill Clinic) TELE CONSULT [id number] Notes Entered by: HANSEL ANTHONY RET 10 Mar 2017 1548 ------- ------- ------- ------- -- Rx Change/ Leigh/Jesus [phone]. [phone] [facility] MIRYAM COREAS 03/[address] [place] [address] Atilio RODRIGUEZ [facility])(M edicati on Refill Clinic) [address] [place] [address] Atilio RODRIGUEZ [facility])(Sco tt [facility] Fam Res Tm Green) TELE CONSULT [id number] Notes Entered by: HUMBERTO MAYO 29 Jul 2017 1414 ------- ------- ------- ------- -- Lab Test Request / Leigh/ - [facility] MIRYAM COREAS 07/[address] [place] [address] Atilio RODRIGUEZ [facility]S [facility] Fam Res Tm Green) [address] [place] [address] Atilio RODRIGUEZ [facility])(Sco tt [facility] Fam Res Tm Green) OUTPATIENT [id number] Routine Check-U p Lab results and Med Renewal s YUMIKO GALARZA 08/06 Released w/o Limitations [address] [place] [address] Atilio RODRIGUEZ [facility])(S cott [facility] Fam Res Tm Green) [address] [place] [address] Atilio RODRIGUEZ [facility])(Sco tt [facility] FAMRES Tm Blue) TELE CONSULT [id number] Notes Entered by: Augustine GALARZA 13 Aug 2017 0737 ------- ------- ------- ------- -- F/u urine culture YUMIKO GALARZA 08/13 Referred for Appointment [address] [place] [address] Atilio FLORIANB [facility])(S cott [facility] FAMRES Tm Blue) [address] [place] [address] Atilio B [facility])(Sco tt [facility] Fam Res Tm Green) TELE CONSULT [id number] Notes Entered by: KALINA LOJA 24 Dec 2017 1301 ------- ------- ------- ------- -- Molina Noriega / Conner christopher / - sgLUIS Melendez 12/[address] [place] [address] Atilio FLORIANB [facility])(S cott [facility] Fam Res Tm Green) [address] [place] [address] Atilio B [facility])(Sco tt [facility] Fam Res Tm Green) OUTPATIENT [id number] left foot, raised area -- upper lip check PHANI VALDEZ 01/29 Released w/o Limitations [address] [place] [address] Atilio B [facility])(S cott [facility] Fam Res Tm Green) [address] [place], [place] [address]B [facility])(Sco tt [facility] Fam Res Tm Green) OUTPATIENT [id number] Derm issue on the chest [id number] PHANI VLADEZ 06/16 Released w/o Limitations [address] [place], [place] [address]B [facility])(S cott [facility] Fam Res Tm Green) [address] [place], [place] [address]B [facility])(Sco tt [facility] Fam Res Tm Green) OUTPATIENT [id number] 7 Procedu re/skin biospy, chest,s houlder ,left knee. ELMO HANSEN 06/29 Released w/o Limitations [address] [place] [address] [employer] [facility])(S cott [facility] Fam Res Tm Green) [address] [place] [address] [employer] [facility])(Sco tt [facility] FAMRES Tm Blue) TELE CONSULT [id number] Notes Entered by: Claire HANSEN 13 Jul 2018 0717 ------- ------- ------- ------- -- biopsy ELMO HANSEN 07/13 Referred for Appointment [address] [place] [address] Atilio FLORIANB [facility])(S cott [facility] FAMRES Tm Blue) [address] [place], [place] [address]B [facility])(Sco tt [facility] Fam Res Tm Green) TELE CONSULT [id number] Notes Entered by: KALINA LOJA 09 Sep 2018 1315 ------- ------- ------- ------- -- Med Selina / Conner christopher / - sgj MIRYAM COREAS 09/09 Referred for Appointment [address] [place] [address] Group [employer] [facility])(S cott [facility] Fam Res Tm Green) [address] [place] [address] [employer] [facility] TELE CONSULT [id number] Notes Entered by: Yanely COREAS 16 Sep 2018 1145 ------- ------- ------- ------- -- Inquiri ng about Cologua rd, tel: [phone]. PHANI VALDEZ 09/16 Referred for Appointment [address] [place] [address] Group [facility])(S [facility] FAMRES Tm Blue) [address] [place] [address] Atilio B [facility])(Sco tt [facility] Fam Res Tm Green) TELE CONSULT [id number] Notes Entered by: Albaro MOULTON 17 Nov 2018 0908 ------- ------- ------- ------- -- Network results Dermato logy 019 PHANI GUTIERREZ 11/17 Released w/o Limitations [address] [place] [address] Group [employer] [facility])(S cott [facility] Fam Res Tm Green) [address] [place] [address] [employer] [facility])(Sco tt [facility] Fam Res Tm Green) TELE CONSULT [id number] Notes Entered by: ERIN BINGHAM 01 Jan 2019 1258 ------- ------- ------- ------- -- Rx renewal - Kristin - - tsg KEN LAU 01/01 Referred for Appointment [address] [place] [address] Group [employer] [facility]S cott [facility] Fam Res Tm Green) [address] [place] [address] [facility]Sco tt [facility] Fam Res Tm Green) TELE CONSULT [id number] Notes Entered by: HUMBERTO MAYO 12 Jan 2019 1306 ------- ------- ------- ------- -- Med Bridge Request / Kristin/ - KEN Garcia 01/12 Medication Refill Forwarded [address] [place] [address] Atilio [facility])(S [facility] Fam Res Tm Green) [address] [place] [address] Atilio [facility])(Sco tt [facility] Fam Res Tm Green) OUTPATIENT [id number] Med Renewal - Cologur ad request -[phone] KEN LAU 02/03 Released w/o Limitations [address] [place] [address] [facility]S [facility] Fam Res Tm Green) [address] [place] [address] Atilio [facility])(Sco tt [facility] Res Tm Green) TELE CONSULT [id number] Notes Entered by: LAVERN AVLE 25 Mar 2019 1446 ------- ------- ------- ------- -- referra l inquiry /kristin/ [phone] KEN Roman 03/25 Other Not Elsewhere Classified [address] [place] [address] [facility]S [facility] Fam Res Tm Green) [address] [place] [address] Atilio [facility])(Sco tt [facility] Fam Res Tm Green) TELE CONSULT [id number] Notes Entered by: LAVERN VALE 29 Jun 2019 1432 ------- ------- ------- ------- -- medical inquiry /kristin/ [phone] MIRYAM Adams 06/28 Released to Self Care [address] [place] [address] Atilio RODRIGUEZ [facility]S cott [facility] Fam Res Tm Green) [address] [place] [address] [facility])(Sco tt [facility] Fam Res Tm Green) TELE CONSULT [id number] Notes Entered by: ISABELA ZAMORA 13 Aug 2019 1139 ------- ------- ------- ------- -- Cologua rd result DAVINA VENEGAS Georgie 08/[address] [place] [address] Atilio [facility])(S cott [facility] Fam Res Tm Green) [address] [place] [address])(Sco tt [facility] Fam Res Tm Green) TELE CONSULT [id number] Notes Entered by: BHAVESH ELLIOTT 30 Sep 2019 1609 ------- ------- ------- ------- -- Network results Dermato logy 020 YAKOVP KEN LAU 09/29 Other Not Elsewhere Classified [address] [place] [address])(S cott [facility] Fam Res Tm Green) [address] [place] [address] Atilio [facility])(Sco tt [facility] Fam Res Tm Green) TELE CONSULT [id number] Notes Entered by: ERIN BINGHAM 18 Jan 2020 1505 ------- ------- ------- ------- -- Rx renewal - Kristin [phone] - tsg MARISOL ROBB 01/17 Released to Self Care [address] [place] [address] Atilio [facility])(S cott [facility] Fam Res Tm Green) [address] [place] [address] Atilio [facility])(Sco tt [facility] Fam Res Tm Green) TELE CONSULT [id number] Notes Entered by: Martinez LAU 28 Jan 2020 1335 ------- ------- ------- ------- -- Appt needed OMAYRA CHANDLER 01/27 Referred for Appointment [address] [place] [address] Atilio [facility])(S cott [facility] Fam Res Tm Green) [address] [place] [address] Atilio [facility])(Sco tt [facility] Fam Res Tm Green) OUTPATIENT [id number] med refills and lab results KEN LAU 02/01 Released w/o Limitations [address] [place] [address] Atilio RODRIGUEZ [facility])(S cott [facility] Fam Res Tm Green) [address] [place] [address] Atilio RODRIGUEZ [facility])([facility]co tt [facility] Fam Res Tm Green) OUTPATIENT [id number] 2 f/u on xrays [phone] KEN LAU 03/06 Released w/o Limitations [address] [place] [address] Atilio RODRIGUEZ [facility])(S cott [facility] Fam Res Tm Green) [address] [place] [address] Atilio RODRIGUEZ [facility])([facility]) OUTPATIENT [id number] Obesity , unspeci fied HOANG, LYNSEY S 03/08 Released w/o Limitations [address] [place] [address] Atilio RODRIGUEZ [facility])(N utritio nal Medicin e) [address] [place] [address] Atilio FLORIANB [facility])(Sco tt [facility] Fam Res Tm Green) TELE CONSULT [id number] Notes Entered by: Joslyn LUJAN 05 Apr 2020 1045 ------- ------- ------- ------- -- Network results Dermato logy 020 ALD KEN LAU 04/05 Other Not Elsewhere Classified [address] [place] [address] Atilio RODRIGUEZ [facility])(S cott [facility] Fam Res Tm Green) [address] [place] [address] Atilio RODRIGUEZ [facility])([facility]co tt [facility] Fam Res Tm Green) TELE CONSULT [id number] Notes Entered by: Martinez LAU 06 Jul 2020 1351 ------- ------- ------- ------- -- Mammogr am Results KEN LAU 07/06 Other Not Elsewhere Classified [address] [place] [address] Atilio RODRIGUEZ [facility])(S [facility] Fam Res Tm Green) [address] [place] [address] Atilio FLORIAN[facility])(Sco tt [facility] Fam Res Tm Green) OUTPATIENT [id number] Virtual -med renewal [phone] AMARILYS SERRATO 12/08 Released w/o Limitations [address] [place] [address] Atilio FLORIAN[facility])(S cott [facility] Fam Res Tm Green) Procedures Combined list of: 1) Procedures from Department of Veterans Affairs facilities [facility], not all VA non-surgical procedures are included; 2) All procedures from the Department of Defense facilities. Procedure Procedure Type Code Date Perfomer Comments Sourc e WAIVER SERVICES; NOT OTHERWISE SPECIFIED (NOS) 1 [facility] MEDICAL NUTRITION THERAPY; INITIAL ASSESSMENT AND INTERVENTION, INDIVIDUAL, [id number]-HE-[id number] WITH THE PATIENT, EACH 15 MINUTES 0 DoD TELE ASSESS & MGT SRV PROV QUAL NONPHYS HLTH CARE PRO TO EST PAT,PARENT,GUARD NOT ORIG REL ASSESS & MGT SRV PROV W/IN PREV 7 DAYS NOR LEAD ASSESS & MGT SRV/PX W/IN NXT 24 HR/SOON APT;5-10 MIN MED DIS 0 DoD COMPLETE PHYSICAL SKIN EXAM PERFORMED (ML) 9 DoD TELE ASSESS & MGT SRV PROV QUAL NONPHYS HLTH CARE PRO TO EST PAT,PARENT,GUARD NOT ORIG REL ASSESS & MGT SRV PROV W/IN PREV 7 DAYS NOR LEAD ASSESS & MGT SRV/PX W/IN NXT 24 HR/SOON APT;5-10 MIN MED DIS 7 DoD TELE ASSESS & MGT SRV PROV QUAL NONPHYS HLTH CARE PRO TO EST PAT,PARENT,GUARD NOT ORIG REL ASSESS & MGT SRV PROV W/IN PREV 7 DAYS NOR LEAD ASSESS & MGT SRV/PX W/IN NXT 24 HR/SOON APT;5-10 MIN MED DIS 7 DoD TELE ASSESS & MGT SRV PROV QUAL NONPHYS HLTH CARE PRO TO EST PAT,PARENT,GUARD NOT ORIG REL ASSESS & MGT SRV PROV W/IN PREV 7 DAYS NOR LEAD ASSESS & MGT SRV/PX W/IN NXT 24 HR/SOON APT;5-10 MIN MED DIS 7 DoD TELE ASSESS & MGT SRV PROV QUAL NONPHYS HLTH CARE PRO TO EST PAT,PARENT,GUARD NOT ORIG REL ASSESS & MGT SRV PROV W/IN PREV 7 DAYS NOR LEAD ASSESS & MGT SRV/PX W/IN NXT 24H/SOON APT; 11-20 MIN MED DIS 7 DoD TELE ASSESS & MGT SRV PROV QUAL NONPHYS HLTH CARE PRO TO EST PAT,PARENT,GUARD NOT ORIG REL ASSESS & MGT SRV PROV W/IN PREV 7 DAYS NOR LEAD ASSESS & MGT SRV/PX W/IN NXT 24 HR/SOON APT;5-10 MIN MED DIS 6 DoD TELE ASSESS & MGT SRV PROV QUAL NONPHYS HLTH CARE PRO TO EST PAT,PARENT,GUARD NOT ORIG REL ASSESS & MGT SRV PROV W/IN PREV 7 DAYS NOR LEAD ASSESS & MGT SRV/PX W/IN NXT 24 HR/SOON APT;5-10 MIN MED DIS 5 DoD TELE ASSESS & MGT SRV PROV QUAL NONPHYS HLTH CARE PRO TO EST PAT,PARENT,GUARD NOT ORIG REL ASSESS & MGT SRV PROV W/IN PREV 7 DAYS NOR LEAD ASSESS & MGT SRV/PX W/IN NXT 24 HR/SOON APT;5-10 MIN MED DIS 5 DoD TELE ASSESS & MGT SRV PROV QUAL NONPHYS HLTH CARE PRO TO EST PAT,PARENT,GUARD NOT ORIG REL ASSESS & MGT SRV PROV W/IN PREV 7 DAYS NOR LEAD ASSESS & MGT SRV/PX W/IN NXT 24 HR/SOON APT;5-10 MIN MED DIS 5 DoD TELE ASSESS & MGT SRV PROV QUAL NONPHYS HLTH CARE PRO TO EST PAT,PARENT,GUARD NOT ORIG REL ASSESS & MGT SRV PROV W/IN PREV 7 DAYS NOR LEAD ASSESS & MGT SRV/PX W/IN NXT 24 HR/SOON APT;5-10 MIN MED DIS 5 DoD TELE ASSESS & MGT SRV PROV QUAL NONPHYS HLTH CARE PRO TO EST PAT,PARENT,GUARD NOT ORIG REL ASSESS & MGT SRV PROV W/IN PREV 7 DAYS NOR LEAD ASSESS & MGT SRV/PX W/IN NXT 24 HR/SOON APT;5-10 MIN MED DIS 5 DoD TELE ASSESS & MGT SRV PROV QUAL NONPHYS HLTH CARE PRO TO EST PAT,PARENT,GUARD NOT ORIG REL ASSESS & MGT SRV PROV W/IN PREV 7 DAYS NOR LEAD ASSESS & MGT SRV/PX W/IN NXT 24 HR/SOON APT;5-10 MIN MED DIS 5 DoD TELE ASSESS & MGT SRV PROV QUAL NONPHYS HLTH CARE PRO TO EST PAT,PARENT,GUARD NOT ORIG REL ASSESS & MGT SRV PROV W/IN PREV 7 DAYS NOR LEAD ASSESS & MGT SRV/PX W/IN NXT 24 HR/SOON APT;5-10 MIN MED DIS 4 DoD TELE ASSESS & MGT SRV PROV QUAL NONPHYS HLTH CARE PRO TO EST PAT,PARENT,GUARD NOT ORIG REL ASSESS & MGT SRV PROV W/IN PREV 7 DAYS NOR LEAD ASSESS & MGT SRV/PX W/IN NXT 24 HR/SOON APT;5-10 MIN MED DIS 4 DoD REMOVAL OF SKIN TAGS, MULTIPLE FIBROCUTANEOUS TAGS, ANY AREA; UP TO AND INCLUDING 15 LESIONS 4 DoD CERVICAL OR VAGINAL CANCER SCREENING; PELVIC AND CLINICAL BREAST EXAMINATION 3 DoD TELE ASSESS & MGT SRV PROV QUAL NONPHYS HLTH CARE PRO TO EST PAT,PARENT,GUARD NOT ORIG REL ASSESS & MGT SRV PROV W/IN PREV 7 DAYS NOR LEAD ASSESS & MGT SRV/PX W/IN NXT 24 HR/SOON APT;5-10 MIN MED DIS 3 DoD PERCUTANEOUS TESTS (SCRATCH, PUNCTURE, PRICK) WITH ALLERGENIC EXTRACTS, IMMEDIATE TYPE REACTION, INCLUDING TEST INTERPRETATION AND REPORT, SPECIFY NUMBER OF TESTS 3 DoD TELE ASSESS & MGT SRV PROV QUAL NONPHYS HLTH CARE PRO TO EST PAT,PARENT,GUARD NOT ORIG REL ASSESS & MGT SRV PROV W/IN PREV 7 DAYS NOR LEAD ASSESS & MGT SRV/PX W/IN NXT 24 HR/SOON APT;5-10 MIN MED DIS 2 DoD TELE ASSESS & MGT SRV PROV QUAL NONPHYS HLTH CARE PRO TO EST PAT,PARENT,GUARD NOT ORIG REL ASSESS & MGT SRV PROV W/IN PREV 7 DAYS NOR LEAD ASSESS & MGT SRV/PX W/IN NXT 24 HR/SOON APT;5-10 MIN MED DIS 2 DoD TELE ASSESS & MGT SRV PROV QUAL NONPHYS HLTH CARE PRO TO EST PAT,PARENT,GUARD NOT ORIG REL ASSESS & MGT SRV PROV W/IN PREV 7 DAYS NOR LEAD ASSESS & MGT SRV/PX W/IN NXT 24 HR/SOON APT;5-10 MIN MED DIS 2 DoD TELE ASSESS & MGT SRV PROV QUAL NONPHYS HLTH CARE PRO TO EST PAT,PARENT,GUARD NOT ORIG REL ASSESS & MGT SRV PROV W/IN PREV 7 DAYS NOR LEAD ASSESS & MGT SRV/PX W/IN NXT 24 HR/SOON APT;5-10 MIN MED DIS 1 DoD TELE ASSESS & MGT SRV PROV QUAL NONPHYS HLTH CARE PRO TO EST PAT,PARENT,GUARD NOT ORIG REL ASSESS & MGT SRV PROV W/IN PREV 7 DAYS NOR LEAD ASSESS & MGT SRV/PX W/IN NXT 24 HR/SOON APT;5-10 MIN MED DIS 1 DoD TELE ASSESS & MGT SRV PROV QUAL NONPHYS HLTH CARE PRO TO EST PAT,PARENT,GUARD NOT ORIG REL ASSESS & MGT SRV PROV W/IN PREV 7 DAYS NOR LEAD ASSESS & MGT SRV/PX W/IN NXT 24 HR/SOON APT;5-10 MIN MED DIS 1 DoD TELE ASSESS & MGT SRV PROV QUAL NONPHYS HLTH CARE PRO TO EST PAT,PARENT,GUARD NOT ORIG REL ASSESS & MGT SRV PROV W/IN PREV 7 DAYS NOR LEAD ASSESS & MGT SRV/PX W/IN NXT 24 HR/SOON APT;5-10 MIN MED DIS 1 [facility] SCREENING [place]OLAOU SMEAR; OBTAINING, PREPARING AND CONVEYANCE OF CERVICAL OR VAGINAL SMEAR TO LABORATORY 0 [facility] MEDICAL NUTRITION THERAPY; RE-ASSESSMENT AND INTERVENTION, INDIVIDUAL, [id number] WITH THE PATIENT, EACH 15 MINUTES 9 [facility] MEDICAL NUTRITION THERAPY; INITIAL ASSESSMENT AND INTERVENTION, INDIVIDUAL, [id number] WITH THE PATIENT, EACH 15 MINUTES 9 [facility] SMEAR, PRIMARY SOURCE WITH INTERPRETATION; WET MOUNT FOR INFECTIOUS AGENTS (EG, SALINE, ANA INK, VÍCTOR PREPS) 9 [facility] ENDOMETRIAL SAMPLING (BIOPSY) WITH OR WITHOUT ENDOCERVICAL SAMPLING (BIOPSY), WITHOUT CERVICAL DILATION, ANY METHOD (SEPARATE PROCEDURE) 9 [facility] OSTEOPATHIC MANIPULATIVE TREATMENT (OMT); 3-4 BODY REGIONS INVOLVED 7 DoD TISSUE EXAMINATION BY VÍCTOR SLIDE OF SAMPLES FROM SKIN, HAIR, OR NAILS FOR FUNGI OR ECTOPARASITE OVA OR MITES (EG, SCABIES) 7 [facility] CYTOPATHOLOGY, SMEARS, CERVICAL OR VAGINAL, UP TO THREE SMEARS; SCREENING BY MASTER COSMETOLOGIST UNDER PHYSICIAN SUPERVISION 7 [facility] UNLISTED URINALYSIS PROCEDURE 7 [facility] OSTEOPATHIC MANIPULATIVE TREATMENT (OMT); 1-2 BODY REGIONS INVOLVED 6 [facility] CULTURE, BACTERIAL; AEROBIC ISOLATE, ADDITIONAL METHODS REQUIRED FOR DEFINITIVE IDENTIFICATION, EACH ISOLATE 6 [facility] OSTEOPATHIC MANIPULATIVE TREATMENT (OMT); 1-2 BODY REGIONS INVOLVED 6 [facility] OSTEOPATHIC MANIPULATIVE TREATMENT (OMT); 5-6 BODY REGIONS INVOLVED 6 [facility] URINALYSIS, BY DIP STICK/TABLET REAGENT FOR BILIRUBIN, GLUCOSE, HEMOGLOBIN, KETONES, LEUKOCYTES, NITRITE, PH, PROTEIN, SPEC GRAV, UROBILINOGEN, ANYNUMBER OF CONSTITUENTS; AUTOMATED, W/ MICROSCOPY 6 [facility] INJECTION, DROPERIDOL AND FENTANYL CITRATE, UP TO 2 ML AMPULE 6 [facility] CYTOPATHOLOGY, SMEARS, CERVICAL OR VAGINAL, UP TO THREE SMEARS; SCREENING BY MASTER COSMETOLOGIST UNDER PHYSICIAN SUPERVISION 5 DoD NONINVASIVE EAR OR PULSE OXIMETRY FOR OXYGEN SATURATION; SINGLE DETERMINATION 2 [facility] Preventive Medicine Complete Physical Skin Exam Performed Preventive Medicine Complete Physical Skin Exam Performed 9 ELMO HANSEN [facility] Shaving Of Lesion Trunk 1.1 to 2cm Shaving Of Lesion Trunk 1.1 to 2cm [id number] [phone] ELMO HANSEN [facility] Destruction Of Benign Lesion By Any Method 1 - 14 Lesions Destruction Of Benign Lesion By Any Method 1 - 14 Lesions [phone] 9 ELMO HANSEN [facility] Non-Physician Phone Call To Patient/Provider Brief (5-10min) Non-Physician Phone Call To Patient/Provider Brief (5-10min) [id number] 7 MERRITT MERINO [facility] Non-Physician Phone Call To Patient/Provider Brief (5-10min) Non-Physician Phone Call To Patient/Provider Brief (5-10min) 71337 7 MIRYAM COREAS [facility] Non-Physician Phone Call To Patient/Provider Brief (5-10min) Non-Physician Phone Call To Patient/Provider Brief (5-10min) 14241 7 CLOVIS HANNON [facility] Non-Physician Phone Call To Pt/Provider Intermed (11-20 min) Non-Physician Phone Call To Pt/Provider Intermed (11-20 min) 82180 7 MERRITT MERINO [facility] Non-Physician Phone Call To Patient/Provider Brief (5-10min) Non-Physician Phone Call To Patient/Provider Brief (5-10min) 79203 6 MERRITT MERINO [facility] Non-Physician Phone Call To Patient/Provider Brief (5-10min) Non-Physician Phone Call To Patient/Provider Brief (5-10min) 34643 5 MIRYAM COREAS Non-Physician Phone Call To Patient/Provider Brief (5-10min) Non-Physician Phone Call To Patient/Provider Brief (5-10min) [phone] 5 MIRYAM COREAS Non-Physician Phone Call To Patient/Provider Brief (5-10min) Non-Physician Phone Call To Patient/Provider Brief (5-10min) 92978 5 MIRYAM COREAS Non-Physician Phone Call To Patient/Provider Brief (5-10min) Non-Physician Phone Call To Patient/Provider Brief (5-10min) 39529 5 ASHISH CASTILLO [facility] Non-Physician Phone Call To Patient/Provider Brief (5-10min) Non-Physician Phone Call To Patient/Provider Brief (5-10min) [phone] 5 MIRYAM COREAS Non-Physician Phone Call To Patient/Provider Brief (5-10min) Non-Physician Phone Call To Patient/Provider Brief (5-10min) [phone] 5 MIRYAM COREAS Non-Physician Phone Call To Patient/Provider Brief (5-10min) Non-Physician Phone Call To Patient/Provider Brief (5-10min) 15919 4 MIRYAM COREAS Non-Physician Phone Call To Patient/Provider Brief (5-10min) Non-Physician Phone Call To Patient/Provider Brief (5-10min) 88492 4 FREEDOM SANABRIA Skin Tag Removal Up To 15 Lesions Skin Tag Removal Up To 15 Lesions 67112 4 SHERLY MCCLAIN [facility] Destruction Of Premalignant Lesion By Any Method One Lesion Destruction Of Premalignant Lesion By Any Method One Lesion 33476 4 SHERLY MCCLAIN [facility] Cervical or vaginal cancer screening; pelvic and clinical breast examination 3 CHIKI AZAR [facility] Non-Physician Phone Call To Patient/Provider Brief (5-10min) Non-Physician Phone Call To Patient/Provider Brief (5-10min) 24259 3 MABLE LEO [facility] Allergy Percutaneous tests - allergenic extracts 3 RONNIE ROSE [facility] Non-Physician Phone Call To Patient/Provider Brief (5-10min) Non-Physician Phone Call To Patient/Provider Brief (5-10min) 22708 2 MIRYAM COREAS [facility] Non-Physician Phone Call To Patient/Provider Brief (5-10min) Non-Physician Phone Call To Patient/Provider Brief (5-10min) 04612 2 MIRYAM COREAS [facility] Non-Physician Phone Call To Patient/Provider Brief (5-10min) Non-Physician Phone Call To Patient/Provider Brief (5-10min) 44489 2 MIRYAM COREAS [facility] Non-Physician Phone Call To Patient/Provider Brief (5-10min) Non-Physician Phone Call To Patient/Provider Brief (5-10min) 80425 1 MIRYAM COREAS [facility] Non-Physician Phone Call To Patient/Provider Brief (5-10min) Non-Physician Phone Call To Patient/Provider Brief (5-10min) 69502 1 JANY CASAREZ [facility] Non-Physician Phone Call To Patient/Provider Brief (5-10min) Non-Physician Phone Call To Patient/Provider Brief (5-10min) 01100 1 IVANA MONTILLA [facility] Non-Physician Phone Call To Patient/Provider Brief (5-10min) Non-Physician Phone Call To Patient/Provider Brief (5-10min) 91206 1 ASHISH CASTILLO [facility] Vaginal Wet [place] Vaginal Wet [place] 01389 0 ANDREA ORTIZ S [facility] Vaginal VÍCTOR Prep Vaginal VÍCTOR Prep [phone] 0 ANDREA ORTIZ [facility] Screening papanicolaou smear; obtaining, preparing and conveyance of cervical or vaginal smear to laboratory 0 ANGEL ANDREA Georgie [facility] Medical Nutrition Therapy Re-a e ment, Intervention Medical Nutrition Therapy Re-assessment, Intervention [phone] 9 CAYETANO SOOD [facility] Medical Nutrition Therapy Initial A e ment, Intervention Medical Nutrition Therapy Initial Assessment, Intervention 48226 9 CAYETANO SOOD [facility] Vaginal Wet [place] Vaginal Wet [place] 67943 9 ANTIHA LÓPEZ Endometrial Biopsy By Suction Endometrial Biopsy By Suction 40756 9 MOLLY MEIER [facility] Osteopathic Manip Treatment (OMT) 3-4 Body Regions Involved Osteopathic Manip Treatment (OMT) 3-4 Body Regions Involved 68432 7 MIKE SAWYER Skin Lesion VÍCTOR Prep Skin Lesion VÍCTOR Prep 68436 7 NATHALY DUVLA [facility] Cervical Pap Smear Cervical Pap Smear 47860 7 SARAVANAN ESQUIVEL [facility] Urinalysis Urinalysis 64698 7 NATHALY DUVAL [facility] Osteopathic Manip Treatment (OMT) 1-2 Body Regions Involved Osteopathic Manip Treatment (OMT) 1-2 Body Regions Involved 40522 6 LULI SOLIS Oropharynx Culture Streptococcus Group A Beta Hemolytic Oropharynx Culture Streptococcus Group A Beta Hemolytic 36652 6 KARLA DENT Rapid Antigen Identification Streptococcus Group A Beta Hemolytic Rapid Antigen Identification Streptococcus Group A Beta Hemolytic 26637 6 KARLA DENT Osteopathic Manip Treatment (OMT) 1-2 Body Regions Involved Osteopathic Manip Treatment (OMT) 1-2 Body Regions Involved 00999 6 MARTÍNEZ BLOUNT [facility] Osteopathic Manip Treatment (OMT) 5-6 Body Regions Involved Osteopathic Manip Treatment (OMT) 5-6 Body Regions Involved 54485 6 NATHALY EVANS [facility] Automated UA With Microscopic Exam Automated UA With Microscopic Exam 55733 6 LULI SOLIS [facility] Corticosteroids Injection Intraarticular Left Shoulder Corticosteroids Injection Intraarticular Left Shoulder 28881 6 NATHALY DUVAL [facility] Injection, droperidol and fentanyl citrate, up to 2 ml ampule 6 NATHALY DUVAL [facility] Cervical Pap Smear Cervical Pap Smear 10180 5 KARIN CARROLL [facility] Non-Physician Phone Call To Patient/Provider Brief (5-10min) Non-Physician Phone Call To Patient/Provider Brief (5-10min) 19088 MIRYAM COREAS [facility] Medical Nutrition Therapy Initial A e ment, Intervention Medical Nutrition Therapy Initial Assessment, Intervention 96824 LYNSEY BOLTON DoD Waiver services; not otherwise specified (NOS) AMARILYS SERRATO [facility] Social History Combined list of available smoking, tobacco, and other social history from Department of Defense and Veterans Affairs facilities. Social History Type Response Date Comment Yariel e This section is an empty social history section. DoD
--- OUTSIDE RECORDS SUMMARY | 2024-08-11 17:27 | XMS_ITS | Clinical Summary ---
Author Organization [facility] Address [address] [place] [phone] Care Team Providers Care Director Of Special Services Name Role Phone DuarteLam leroy Primary Care Provider + Allergies Active Allergy Reactions Criticality Noted Date Comments Morphine Vomiting Low 07/23/2021 Niacin Stomach upset Low 01/03/2017 Stomach/GI Upset Penicillins Rash Medium 01/03/2017 Rash Medications lfr-S6-bci61-zin s-wzr-oitl-bor 600 mg calcium- 800 unit-50 mg tablet [...] on file Legal Sex Female 5:57 AM [employer]ACE [employer]PER[employer] Gender Identity Not on file Sexual Orientation Straight 07/21/2021 10 :55 PM CDT Obstetrics History Para Term AB IAB SAB Ectopic Multiple Livin g Live Births 1 Date Outcome GA Total Labor Labor/2nd/3rd Weight Sex Type Anes PTL [place] A1 A5 Name Clin Last Filed Vital Signs Vital Sign Reading Time Taken Comments Blood Pressure 114/76 04/22/2024 1:01 PM [employer] Pulse 78 04/22/2024 1:01 PM [employer] Temperature 36.4 C (97.5 F) 04/22/2024 1:01 PM [employer] Respiratory Rate 20 04/22/2024 1:01 PM [employer] Oxygen Saturation 98% 04/22/2024 1:01 PM [employer] Inhaled Oxygen Concentration - - Weight 82.6 kg (182 lb 1.6 oz) 04/22/2024 1:01 P M [employer] Height 157.5 cm (5' 2.01 ) 04/22/2024 1:01 PM CS T Body Mass Index 33.3 04/22/2024 1:01 PM [employer] Plan of Treatment Health Maintenance Due Date [...] age 40, based on guidelines of the [place] [employer] (ACR Practice Parameter for the Performance of Screening and Diagnostic Mammography) and [place] [employer]nec[employer]. For women [...] DNA - Cologuard (08/21/2022 9:45 AM CDT) Pathologist [facility] Stool DNA - Cologuard Negative Negative [employer] (CLIA #:[id number]) Comment: NEGATIVE TEST RESULT. A negative Cologuard [...] (Justo Case al, N Engl J Med 2014;370(14):7925-5745) The normal value (reference range) for this assay is negative. COLOGUARD RE-SCREENING RECOMMENDATION: Periodic colorectal cancer screening is an important part of preventive healthcare for asymptomatic individuals at average risk for colorectal cancer. Following a negative Cologuard result, the [place] [employer] Society and U.S. Multi-Society Task Force screening guidelines recommend a Cologuard re-screening interval of 3 years. References: [place] [employer] Guideline for Colorectal Cancer Screening: https://www.cancer.org/cancer/swuno-zxmmob-zovgyh/guajdfgty-hphuqpnll-rgvujua/ac s-rec ommendations.html.; Graret DK, Carmencita CR, Bella BrushK, Colorectal Cancer Screening: Recommendations for Physicians and Patients from the U.S. Multi-Society Task Force on Colorectal Cancer Screening , Am J Gastroenterology 2017; 112:2924-1474. TEST DESCRIPTION: Composite algorithmic analysis of stool [...] (Justo Case al, N Engl J Med 2014;370(14):9769-1874.) Cologuard may produce a false negative or false positive result (no colorectal cancer or precancerous polyp present at colonoscopy follow up). A negative Cologuard test result does not guarantee the absence of CRC or advanced adenoma (pre-cancer). The current Cologuard screening interval is every 3 years. ([place] [employer] Society and U.S. Multi-Society Task Force). Cologuard performance data in a 10,000 patient pivotal study using colonoscopy as the reference method can be accessed at the following location: www.MadeClose.Harper Love Adhesive/results. Additional description of the Cologuard test process, warnings and precautions can be found at www.Marketocracyrd.Harper Love Adhesive. Stool 08/21/2022 9:45 AM CDT 08/22/2022 5:16 PM CDT Lam Duarte DO LAB BODY FLUIDS AND STOO LS ORDERABLES Final Result [facility] (CLIA #:[id number]) [place] [address] * Dexa Axial Skeleton Bone Density 1 Or 2 Site (01/08/2022 2:46 PM CDT) Anatomical Region Laterality Modality Body N/A Mammography 01/09/2022 6:11 PM CDT Narrative 01/09/2022 6:19 PM CDT EXAM DESCRIPTION: DEXA AXIAL SKELETON BONE DENSITY 1 OR MORE SITES REASON FOR STUDY: 66 y/o year old F with given history of screening. Postmenopausal Briquette Machine Operator/Model: Hologic Horizon A (S/N [id number]) CLINICAL INFORMATION: Current height: 62 inches Maximum [...] Seven Portillo M.D. MF: NICOLÁS Report ID: [id number] Reading Location: [id number] [facility] Note Seven Portillo MD - 01/09/2022 EXAM DESCRIPTION: DEXA AXIAL SKELETON BONE DENSITY 1 OR MORE SITES REASON FOR STUDY: 66 y/o year old F with given history ofscreening. Postmenopausal Briquette Machine Operator/Model: Hologic Horizon A (S/N [id number]) CLINICAL INFORMATION: Current height: 62 inches Maximum [...] Seven Portillo M.D. MF: NICOLÁS Report ID: [id number] Reading Location: [id number] Lam Duarte DO IMG DXA PROCEDURES Final [...] a test for HCV RNA (test code 64881) is suggested. For additional information please refer to http://education.Plastic Jungle/faq/GBZ65l9 (This link is being provided for informational/ educational purposes only.) 07/26/2021 2:00 PM CDT 07/26/2021 2:03 PM CDT Narrative [facility] - 07/27/2021 10:40 AM CDT FASTING:YES FASTING: YES Lam Duarte DO LAB MICROBIOLOGY - GENER AL ORDERABLES Final Result [facility] [address] [place] [address] from Last 3 Months or Most Recently Relevant to Health Maintenance Insurance MEDICARE FOR LIFE MEDICARE FOR LIFE Care Teams Director Of Special Services Relationship Specialty [place] [address] [place] [phone] PCP - General Family Medicine 07/23/21
--- OUTSIDE RECORDS SUMMARY | 2024-08-11 17:27 | XMS_ITS | Referral Summary ---
Author Organization [facility] Address [address] [place] [phone] Care Team Providers Care Marine Engineer Name Role Phone DuarteLam leroy Primary Care Provider + Allergies Active Allergy Reactions Criticality Noted Date Comments Morphine Vomiting Low 07/23/2021 Niacin Stomach upset Low 01/03/2017 Stomach/GI Upset Penicillins Rash Medium 01/03/2017 Rash Medications wpo-C9-oti82-zin z-web-xzjo-bor 600 mg calcium- 800 unit-50 mg tablet [...] on file Legal Sex Female 5:57 AM WEB PRESSMAN Gender Identity Not on file Sexual Orientation Straight 07/21/2021 10 :55 PM CDT Last Filed Vital Signs Vital Sign Reading Time Taken Comments Blood Pressure 114/76 04/22/2024 1:01 PM WEB PRESSMAN Pulse 78 04/22/2024 1:01 PM WEB PRESSMAN Temperature 36.4 C (97.5 F) 04/22/2024 1:01 PM WEB PRESSMAN Respiratory Rate 20 04/22/2024 1:01 PM WEB PRESSMAN Oxygen Saturation 98% 04/22/2024 1:01 PM WEB PRESSMAN Inhaled Oxygen Concentration - - Weight 82.6 kg (182 lb 1.6 oz) 04/22/2024 1:01 P M WEB PRESSMAN Height 157.5 cm (5' 2.01 ) 04/22/2024 1:01 PM CS T Body Mass Index 33.3 04/22/2024 1:01 PM WEB PRESSMAN Plan of Treatment Not on file Procedures [...] age 40, based on guidelines of the [place] [employer] (ACR Practice Parameter for the Performance of Screening and Diagnostic Mammography) and [place] [employer]ians and Gynecologists. For women [...] CDT) Stool DNA - Cologuard Negative Negative [employer] (CLIA #:[id number]) Comment: NEGATIVE TEST RESULT. A negative Cologuard [...] Boone et al, N Engl J Med 2014;370(14):4059-8132) The normal value (reference range) for this assay is negative. COLOGUARD RE-SCREENING RECOMMENDATION: Periodic colorectal cancer screening is an important part of preventive healthcare for asymptomatic individuals at average risk for colorectal cancer. Following a negative Cologuard result, the [place] Cancer Society and U.S. Multi-Society Task Force screening guidelines recommend a Cologuard re-screening interval of 3 years. References: [place] [employer] Guideline for Colorectal Cancer Screening: https://www.cancer.org/cancer/ttbcq-tpccwa-eupjkh/bxdqenack-pxcgkmuta-iinezhr/ac s-rec ommendations.html.; Garret MATHEWS, Carmencita FIELDS, Bella BrushK, Colorectal Cancer Screening: Recommendations for Physicians and Patients from the U.S. Multi-Society Task Force on Colorectal Cancer Screening , Am J Gastroenterology 2017; 112:6564-9405. TEST DESCRIPTION: Composite algorithmic analysis of stool [...] (Justo Case al, N Engl J Med 2014;370(14):8145-5291.) Cologuard may produce a false negative or false positive result (no colorectal cancer or precancerous polyp present at colonoscopy follow up). A negative Cologuard test result does not guarantee the absence of CRC or advanced adenoma (pre-cancer). The current Cologuard screening interval is every 3 years. ([place] Cancer Society and U.S. Multi-Society Task Force). Cologuard performance data in a 10,000 patient pivotal study using colonoscopy as the reference method can be accessed at the following location: www.Singulex/results. Additional description of the Cologuard test process, warnings and precautions can be found at www.cologuard.com. Stool 08/21/2022 9:45 AM CDT 08/22/2022 5:16 PM CDT Lam Duarte DO LAB BODY FLUIDS AND STOO LS ORDERABLES Final Result [facility] (CLIA #:[id number]) [address] [place] [address] * Dexa Axial Skeleton Bone Density 1 Or 2 Site (01/08/2022 2:46 PM CDT) Anatomical Region Laterality Modality Body N/A Mammography 01/09/2022 6:11 PM CDT Narrative 01/09/2022 6:19 PM CDT EXAM DESCRIPTION: DEXA AXIAL SKELETON BONE DENSITY 1 OR MORE SITES REASON FOR STUDY: 66 y/o year old F with given history of screening. Postmenopausal Cloth Bolt Bander/Model: Hologic Horizon A (S/N [id number]) CLINICAL INFORMATION: Current height: 62 inches Maximum [...] Seven Portillo M.D. MF: NICOLÁS Report ID: [id number] Reading Location: [place] [address] Procedure Note Seven Portillo MD - 01/09/2022 EXAM DESCRIPTION: DEXA AXIAL SKELETON BONE DENSITY 1 OR MORE SITES REASON FOR STUDY: 66 y/o year old F with given history ofscreening. Postmenopausal Cloth Bolt Bander/Model: HoloWoppa A (S/N [id number]) CLINICAL INFORMATION: Current height: 62 inches Maximum [...] Seven Portillo M.D. MF: NICOLÁS Report ID: [id number] Reading Location: [id number] Lam Duarte DO IMG DXA PROCEDURES Final [...] a test for HCV RNA (test code 13140) is suggested. For additional information please refer to http://education.Lightonus.com/faq/JUP48e9 (This link is being provided for informational/ educational purposes only.) 07/26/2021 2:00 PM CDT 07/26/2021 2:03 PM CDT Narrative [facility] - 07/27/2021 10:40 AM CDT FASTING:YES FASTING: YES Lam Duarte DO LAB MICROBIOLOGY - GENER AL ORDERABLES Final Result [facility] [address] [place] [address] from Last 3 Months or Most Recently Relevant to Health Maintenance Insurance MEDICARE FOR LIFE MEDICARE FOR LIFE Care Teams Marine Engineer Relationship Specialty Start Date End Date Lam Duarte DO [address] [phone] PCP - General Family Medicine 07/23/21
--- OUTSIDE RECORDS SUMMARY | 2024-08-11 17:27 | XMS_ITS | Encounter Summary ---
Author Organization [facility] Address [address] [place] [address] Care Team Providers Care Cutter Wet Machine Name Role Phone Unavailable Primary Care Provider Unavailabl e Encounter Details Date Type Department Care Team (Late st Contact Info) Description 06/11/[address] [facility] [address] [place] [id number] Chapis Palencia MD [address] [place] [address] Neoplasm of uncertain behavior of skin Social History Tobacco Use Types Packs/Day Years Used Date Smoking Tobacco: Never Assessed Comments Unknown Sex and Gender Information Value Date Recorded Sex Assigned at Not on file Legal Sex Female 3:21 PM DIAL EQUIPMENT ENGINEER Gender Identity Not on file Sexual Orientation Not on file documented as of this encounter Plan of Treatment Not on file documented as of this encounter Procedures Procedure Name Priority Date/Time Associated Diagnosis Comments DERMATOPATHOLOGY Routine 06/11/2023 3:33 AM DIAL EQUIPMENT ENGINEER Neoplasm of uncertain behavior of skin documented in this encounter Results * DERMATOPATHOLOGY (06/11/2023 3:33 AM DIAL EQUIPMENT ENGINEER) Case Report Dermatopathology Report Case: [id number] Authorizing Provider: Chapis Palencia MD Collected: 06/11/2023 03:33 AM Ordering Location: [facility] Received: 06/12/2023 02:35 PM Pathologist: Nova Hannah MD Specimens: A) - Skin, upper sternum B) - Skin, left proximal posterior thigh 10:57 AM DIAL EQUIPMENT ENGINEER DERMATOPATHOLOGY LABORATORY Final Diagnosis Specimen A. SKIN, upper sternum: LICHEN PLANUS-LIKE KERATOSIS (BENIGN LICHENOID KERATOSIS) (L82.1) Specimen B. SKIN, left proximal posterior thigh: BENIGN VERRUCOUS KERATOSIS (L82.1) 10:57 AM [facility] DERMATOPATHOLOGY [facility]ORAT[facility] Clinical History A: Basal Cell Carcinoma vs Sebaceous Hyperplasia B: Irritated Seborrheic Keratosis 10:57 AM [facility] DERMATOPATHOLOGY LABORATORY Gross Description Specimen A: [...] measuring 9x7x2 mm. Jar 0. 10:57 AM [facility] DERMATOPATHOLOGY [facility]OR[facility]ORY Microscopic Description Specimen A. SKIN, upper sternum: The epidermis is mildly acanthotic. There is a lichenoid infiltrate with vacuolar changes of basilar keratinocytes and scattered necrotic keratinocytes. Specimen B. SKIN, left proximal posterior thigh: Sections show hyperkeratosis, papillomatosis, hypergranulosis, and acanthosis. These histological findings can be seen in a verruca vulgaris or a seborrheic keratosis. 10:57 AM [facility] DERMATOPATHOLOGY LABORATORY Disclaimer An external and internal positive and negative controls are appropriate for the histochemical, immunohistochemical and immunofluorescence stain(s) in this case (if any), except where stated explicitly. The performance characteristics of the stain(s) cited in this report were developed and its performance characteristic determined by the Dermatopathology Laboratory at [facility], directed by Dr. Althea Chatman. These tests need not be, and therefore are not, approved by the [place] Food and Drug Administration. The tests are used for clinical purposes. Billing Codes Specimen Charges Stain Charges 47996 56339 1 1 10:57 AM [facility] DERMATOPATHOLOGY [facility]ORATORY Embedded Images 10:57 AM [facility] DERMATOPATHOLOGY [facility]OR[facility] Pathology/Cytology TISSUE SPECIMEN FROM SKIN / Unknown 06/11/2023 3:33 AM DIAL EQUIPMENT ENGINEER 06/12/2023 2:35 PM [facility] Miscellaneous samples (specimen) TISSUE SPECIMEN FROM SKIN / Unknown 06/11/2023 3:33 AM DIAL EQUIPMENT ENGINEER 06/12/2023 2:35 PM DIAL EQUIPMENT ENGINEER us Chapis Palencia MD LAB - PATHOLOGY/CYTOLOGY ORDERAB LES Final Result DERMATOPATHOLOGY LABORATORY [facility] - Department of Dermatology [facility] Medicine [address] [place] [address], [address] [phone] documented in this encounter Visit Diagnoses Diagnosis Neoplasm of uncertain behavior of skin documented in this encounter
--- OUTSIDE RECORDS SUMMARY | 2024-08-11 17:27 | XMS_ITS | Clinical Summary ---
Author Organization [facility] Address [address] [place] [address] Care Team Providers Care Life Insurance Specialist Name Role Phone Unavailable Primary Care Provider Unavailabl e Source Comments [facility],non-owned Affiliates and Associated Physician Practices is amultiple site organization consisting of ambulatory clinics and hospital sitesin [place], [place], [place] and [place]. This disclosure is being madepursuant to the Care Everywhere program and may not contain all information available regarding this patient. Last updated 18.[facility] Social History Tobacco Use Types Packs/Day Years Used Date Smoking Tobacco: Never Assessed Comments Unknown Sex and Gender Information Value Date Recorded Sex Assigned at Not on file Legal Sex Female 3:21 PM ECONOMIC DEVELOPMENT COORDINATOR Gender Identity Not on file Sexual Orientation [...] VACCINE ( - 2023-2 5 season) 2023 DEPRESSION SCREENING 04/21/2024 INFLUENZA VACCINE (Season Ended) 2024 Respiratory Syncytial Virus (RSV) Vaccine Pt: or [...] on patient's age to complete this topic Insurance MEDICARE [facility]
--- OUTSIDE RECORDS SUMMARY | 2024-08-11 17:28 | XMS_ITS | Encounter Summary ---
Author Organization [facility] Facility Care Team Providers Care Laboratory Operations Coordinator Name Role Phone No, Physician Primary Care Provider [phone] Lam Duarte DO Primary Care Provider + Encounter Details Date Type Department Care Team (Latest Contact Info) Description 09/13/2014 Orders Only [facility] ProviderGerald MD [address] [place] [address] Social History Tobacco Use Types Packs/Day Years Used Date Smoking Tobacco: Never Assessed Comments Unknown Sex and Gender Information Value Date Recorded Sex Assigned at Not on file Legal Sex Female 5:57 AM BOOKBINDER APPRENTICE Gender Identity Not on file Sexual Orientation [...] on filedocumented in this encounter Care Teams Laboratory Operations Coordinator Relationship Specialty Start Date End Date No, Physician PCP - General 05/16/21 07/22/21 Lam Duarte DO [address] [address] PCP - General Family Medicine 07/23/21 documented as of this encounter
--- OUTSIDE RECORDS SUMMARY | 2024-08-11 17:28 | XMS_ITS | Clinical Summary ---
Author Organization [facility] Address [address] [place] [address] Care Team Providers Care Machine Binder Stripper Name Role Phone Unavailable Primary Care Provider [...] 1 - Tdap) 01/16/1975 Mammogram Screening 1996 Pneumococcal Vaccine: 50+ Ye ars (1 of 1 - PCV) 01/16/2006 Zoster Vaccines (1 of 2) 01/16/2006 Dexa Scan (General) 01/16/2021 COVID-19 Vaccine ( - 2023-2 5 season) 2023 RSV Immunization or 60+ Years (1 - [...]
== END 2024-08-11 15:39 | disposition home or self-care (01) ==
PROVIDERS: PCP Family Medicine; Visit Provider Nurse Practitioner Family
DX: N20.0 Calculus of kidney (principal); K44.9 Diaphragmatic hernia without obstruction or gangrene
CPT/HCPCS: 74176

== ENCOUNTER 2024-09-24 13:52 | Emergency (ER) | payer MEDICARE, OTHER, SELFPAY ==
--- OUTSIDE RECORDS SUMMARY | 2024-09-24 13:55 | XMS_ITS | Encounter Summary ---
Author Organization [facility] Address [address] [facility] [place] [address] Care Team Providers Care Peer Educator Name Role Phone Lam Duarte DO Primary Care Provider + Encounter Details Date Type Department Care Team (Late st Contact Info) Description 12/09/2023 Orders Only [facility] Health Information Management [address] [place] [address] Lam Duarte, [facility] [address] Social History Tobacco Use Types Packs/Day Years Used Date Smoking Tobacco: Never PHQ-2 Answer Date Recorded PHQ-2 Total Score (If total score is 3 or more points, staff should administer the PHQ-9) 0 08/25/2023 Comments No Sex and Gender Information Value Date Recorded Sex Assigned at Not on file Legal Sex Female 5:57 AM ENVIRONMENTAL RESEARCH SCIENTIST Gender Identity Not on file Sexual Orientation Straight 07/21/2021 10 :55 PM CDT documented as of this encounter Plan of Treatment Upcoming Encounters Date Type Department Care Team (Late st Contact Info) Description 10/04/2024 10:30 AM CDT Hospital Encounter [facility] [address] [place] [phone] Rodrick Morales MD [address] [place] [address] 10/04/2024 10:30 AM CDT - 10/04/2024 11:00 AM CDT Surgery [facility] [address] [place] [phone] Rodrick Morales MD [address] [place] [address] EGD Scheduled Procedures Name Priority Associated Diagnoses Date/Ti me ESOPHAGOGASTRODUODENOSCOPY Large hiatal hernia 10/04/2024 10:30 AM CDT documented as of this encounter Procedures Procedure Name Priority Date/Time Associated Diagnosis Comments SCAN - RADIOLOGY/IMAGING 12/09/2023 documented in this encounter Results * SCAN - RADIOLOGY/IMAGING (12/09/2023) Anatomical Region Laterality Modality Other Lam Duarte DO Final Re sult documented in this encounter Visit Diagnoses Not on filedocumented in this encounter Care Teams Peer Educator Relationship Specialty Start Date End Date Lam Duarte DO [address] [place] [id number] PCP - General Family Medicine 07/23/21 documented as of this encounter
--- OUTSIDE RECORDS SUMMARY | 2024-09-24 13:56 | XMS_ITS | Clinical Summary ---
Author Organization [facility] Address [address] [place] [address] Care Team Providers Care Raisin Separator Operator Name Role Phone Unavailable Primary Care Provider Unavailabl e Source Comments [facility],non-owned Affiliates and Associated Physician Practices is amultiple site organization consisting of ambulatory clinics and hospital sitesin [place], [place], [place] and [place]. This disclosure is being madepursuant to the Care Everywhere program and may not contain all information available regarding this patient. Last updated 18.[facility] Social History Tobacco Use Types Packs/Day Years Used Date Smoking Tobacco: Never Assessed Comments Unknown Sex and Gender Information Value Date Recorded Sex Assigned at Not on file Legal Sex Female 3:21 PM HYDROLOGY TEACHER Gender Identity Not on file Sexual Orientation [...] age to complete this topic Insurance MEDICARE [facility] [employer]
--- OUTSIDE RECORDS SUMMARY | 2024-09-24 13:56 | XMS_ITS | Encounter Summary ---
Author Organization [facility] Address [address] [place] [address] Care Team Providers Care Daycare Teacher Name Role Phone Unavailable Primary Care Provider Unavailabl e Encounter Details Date Type Department Care Team (Late st Contact Info) Description 06/11/2023 Lab Requisition [facility] - DermPath Lab [address] [place] [phone] Chapis Palencia MD [address] [place] [address] Neoplasm of uncertain behavior of skin Social History Tobacco Use Types Packs/Day Years Used Date Smoking Tobacco: Never Assessed Comments Unknown Sex and Gender Information Value Date Recorded Sex Assigned at Not on file Legal Sex Female 3:21 PM DETECTIVE AND INTELLIGENCE ANALYST Gender Identity Not on file Sexual Orientation Not on file documented as of this encounter Plan of Treatment Not on file documented as of this encounter Procedures Procedure Name Priority Date/Time Associated Diagnosis Comments DERMATOPATHOLOGY Routine 06/11/2023 3:33 AM DETECTIVE AND INTELLIGENCE ANALYST Neoplasm of uncertain behavior of skin documented in this encounter Results * DERMATOPATHOLOGY (06/11/2023 3:33 AM DETECTIVE AND INTELLIGENCE ANALYST) Case Report Dermatopathology Report Case: [id number] Authorizing Provider: Chapis Palencia MD Collected: 06/11/2023 03:33 AM Ordering Location: [facility] DermPath Lab Received: 06/12/2023 02:35 PM Pathologist: Nova Hannah MD Specimens: A) - Skin, upper sternum B) - Skin, left proximal posterior thigh 10:57 AM DETECTIVE AND INTELLIGENCE ANALYST DERMATOPATHOLOGY LABORATORY Final Diagnosis Specimen A. SKIN, upper sternum: LICHEN PLANUS-LIKE KERATOSIS (BENIGN LICHENOID KERATOSIS) (L82.1) Specimen B. SKIN, left proximal posterior thigh: BENIGN VERRUCOUS KERATOSIS (L82.1) 10:57 AM [facility] DERMATOPATHOLOGY LABORATORY at [address]57 DETECTIVE AND INTELLIGENCE ANALYST Clinical History A: Basal Cell Carcinoma vs Sebaceous Hyperplasia B: Irritated Seborrheic Keratosis 10:57 AM [facility] DERMATOPATHOLOGY LABORATORY Gross Description Specimen A: Received [...] measuring 9x7x2 mm. Jar 0. 10:57 AM [facility] DERMATOPATHOLOGY LABORATORY Microscopic Description Specimen A. SKIN, upper sternum: The epidermis is mildly acanthotic. There is a lichenoid infiltrate with vacuolar changes of basilar keratinocytes and scattered necrotic keratinocytes. Specimen B. SKIN, left proximal posterior thigh: Sections show hyperkeratosis, papillomatosis, hypergranulosis, and acanthosis. These histological findings can be seen in a verruca vulgaris or a seborrheic keratosis. 10:57 AM [facility] DERMATOPATHOLOGY LABORATORY Disclaimer An external and internal positive and negative controls are appropriate for the histochemical, immunohistochemical and immunofluorescence stain(s) in this case (if any), except where stated explicitly. The performance characteristics of the stain(s) cited in this report were developed and its performance characteristic determined by the Dermatopathology Laboratory at [facility], directed by Dr. Althea Chatman. These tests need not be, and therefore are not, approved by the [place] Food and Drug Administration. The tests are used for clinical purposes. Billing Codes Specimen Charges Stain Charges 92873 [address] 1 1 10:57 AM [facility] DERMATOPATHOLOGY LABORATORY Embedded Images 10:57 AM [facility] DERMATOPATHOLOGY LABORATORY Pathology/Cytology TISSUE SPECIMEN FROM SKIN / Unknown 06/11/2023 3:33 AM DETECTIVE AND INTELLIGENCE ANALYST 06/12/2023 2:35 PM [facility] Miscellaneous samples (specimen) TISSUE SPECIMEN FROM SKIN / Unknown 06/11/2023 3:33 AM DETECTIVE AND INTELLIGENCE ANALYST 06/12/2023 2:35 PM DETECTIVE AND INTELLIGENCE ANALYST us Chapis Palencia MD LAB - PATHOLOGY/CYTOLOGY ORDERAB LES Final Result DERMATOPATHOLOGY LABORATORY [facility] - Department of Dermatology [facility] Medicine [address] [place] [address], [address] [phone] documented in this encounter Visit Diagnoses Diagnosis Neoplasm of uncertain behavior of skin documented in this encounter
--- OUTSIDE RECORDS SUMMARY | 2024-09-24 13:56 | XMS_ITS | Clinical Summary ---
Author Organization [facility] Address [address] [place] [phone] Care Team Providers Care Wire Photo Operator News Name Role Phone DuarteLam leroy Primary Care Provider + Allergies Active Allergy Reactions Criticality Noted Date Comments Morphine Vomiting Low 07/23/2021 Niacin Stomach upset Low 01/03/2017 Stomach/GI Upset Penicillins Rash Medium 01/03/2017 Rash Medications [id number] 600 mg calcium- 800 unit-50 mg tablet Take by mouth Active multivitamin with iron tablet Take 1 tablet by mouth daily Active calcium carbonate-vitami n D3 1,500 mg (600mg elemental) -800 unit per tablet Take 1 tablet by mouth daily 90 tablet 1 02/24/2023 Active omeprazole (PriLOSEC) 20 mg capsuleIndicatio ns:Gastroesophag eal reflux disease without esophagitis TAKE 1 CAPSULE DAILY 90 capsule 3 08/17/2024 Active fexofenadine (TERESA) 180 mg tablet TAKE 1 TABLET DAILY 90 tablet 3 08/17/2024 Active pravastatin (PRAVACHOL) 80 mg tablet TAKE 1 TABLET DAILY 90 tablet 08/19/2024 Active Active Problems Problem Noted Date Diagnosed Date Large hiatal hernia 09/21/2024 Age-related osteoporosis wit hout current pathological fracture 07/23/2021 History of basal cell cancer Hyperlipidemia GERD (gastroesophageal reflux disease) Encounters Date Type Department Care Team Description 09/21/2024 Telephone [facility] Gastroenterology [address] [place] [address] Medical Office Building [address], [address] [place] [address] Angelina Weir LPN GI Preprocedure 09/20/2024 Telephone [facility] Specialty Services [address] [place] [address] Chana Hernandez RN GI Preprocedure 09/14/2024 2:15 PM CDT Office Visit [facility] [address] [place] [address] [address] [place] [address] Lam Duarte DO Class 1 obesity without serious comorbidity with body mass index (BMI) of 30.0 to 30.9 in adult, unspecified obesity type (Primary Dx); Hiatal hernia; Gastroesophageal reflux disease without esophagitis 09/06/2024 Telephone [facility] [address] [place] [address] [address] [place] [address] Lam Duarte DO appt to discuss findings CT scan of kidney stones from Last 3 Months Immunizations Immunization Administration [...] points, staff should administer the PHQ-9) 0 09/14/2024 Comments No Sex and Gender Information Value Date Recorded Sex Assigned at Not on file 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 Gender Identity Not on file Sexual Orientation Straight 07/21/2021 10 :55 PM CDT Obstetrics History Para Term AB IAB SAB Ectopic Multiple Livin g Live Births 1 Date Outcome GA Total Labor Labor/2nd/3rd Weight Sex Type Anes PTL Alma A1 A5 Name Clin Last Filed Vital Signs Vital Sign Reading Time Taken Comments Blood Pressure 120/60 09/14/2024 2:18 PM CDT Pulse 81 09/14/2024 2:18 PM CDT Temperature 36.1 C (97 F) 09/14/2024 2:18 PM CDT Respiratory Rate 18 09/14/2024 2:18 PM CDT Oxygen Saturation 94% 09/14/2024 2:18 PM CDT Inhaled Oxygen Concentration - - Weight 83.5 kg (184 lb) 09/14/2024 2:18 PM CDT Height 157.5 cm (5' 2.01) 09/14/2024 2:18 PM CD T Body Mass Index 33.64 09/14/2024 2:18 PM CDT Plan of Treatment Upcoming Encounters Date Type Department Care Team (Late st Contact Info) Description 10/04/2024 10:30 AM CDT Hospital Encounter [address] [phone] Rodrick Morales MD [address] [address] 10/04/2024 10:30 AM CDT - 10/04/2024 11:00 AM CDT Surgery [facility] [address] [place] [phone] Rodrick Morales MD [address] [address] EGD Scheduled Procedures Name Priority Associated Diagnoses Date/Ti me ESOPHAGOGASTRODUODENOSCOPY Large hiatal hernia 10/04/2024 10:30 AM CDT Health Maintenance Due Date Last Done Comments Osteoporosis Screening-Bone Density Scan 01/09/2024 01/08/2022 Well Visit 65+ 08/24/2024 08/25/2023, 0404/2022, 07/23/2021 Breast Cancer Screening-Mammogram 01/27/2025 01/28/2024, 01/08/2022, 04/05/2015 Covid-19 Vaccine ( season) 2025 04/07/2021, 08/16/2020, 07/26/2020 Postponed from 12/21/2023 (Patient declined, but will receive in the future) Colon Cancer Screening-DNA Stool 08/21/2025 08/21/2022, 08/04/2019 Depression Screening 09/14/2025 09/14/2024, 08/25/2023, 08/09/2022, Additional history exists Fall Risk Assessment 09/14/2025 09/14/2024, 08/25/2023, 08/09/2022, Additional history exists DTaP/Tdap/Td Vaccine (2 - Td or Tdap) [...] age 40, based on guidelines of the [place] [employer] (ACR Practice Parameter for the Performance of Screening and Diagnostic Mammography) and [place] [employer]. For women [...] CDT) Stool DNA - Cologuard Negative Negative [employer] (CLIA #:[id number]) Comment: NEGATIVE TEST RESULT. A negative Cologuard [...] (Justo Case al, N Engl J Med 2014;370(14):3510-3295) The normal value (reference range) for this assay is negative. COLOGUARD RE-SCREENING RECOMMENDATION: Periodic colorectal cancer screening is an important part of preventive healthcare for asymptomatic individuals at average risk for colorectal cancer. Following a negative Cologuard result, the [place] [employer] and U.S. Multi-Society Task Force screening guidelines recommend a Cologuard re-screening interval of 3 years. References: [place] [employer] Guideline for Colorectal Cancer Screening: https://www.cancer.org/cancer/zkbek-vgfrla-fiesnn/hoohutqkj-itrgummin-inwxmyv/ac s-rec ommendations.html.; Garret DK, Carmencita CR, Bella BrushK, Colorectal Cancer Screening: Recommendations for Physicians and Patients from the U.S. Multi-Society Task Force on Colorectal Cancer Screening , Am J Gastroenterology 2017; 112:6788-1975. TEST DESCRIPTION: Composite algorithmic analysis of stool [...] (Justo Case al, N Engl J Med 2014;370(14):8859-0827.) Cologuard may produce a false negative or false positive result (no colorectal cancer or precancerous polyp present at colonoscopy follow up). A negative Cologuard test result does not guarantee the absence of CRC or advanced adenoma (pre-cancer). The current Cologuard screening interval is every 3 years. ([place] [employer] and U.S. Multi-Society Task Force). Cologuard performance data in a 10,000 patient pivotal study using colonoscopy as the reference method can be accessed at the following location: www.[employer]/results. Additional description of the Cologuard test process, warnings and precautions can be found at www.The [employer].com. Stool 08/21/2022 9:45 AM CDT 08/22/2022 5:16 PM CDT Lam Duarte DO LAB BODY FLUIDS AND STOO LS ORDERABLES Final Result [facility] (CLIA #:[id number]) [place] [address] [place] [address] * Dexa Axial Skeleton Bone Density 1 Or 2 Site (01/08/2022 2:46 PM CDT) Anatomical Region Laterality Modality Body N/A Mammography 01/09/2022 6:11 PM CDT Narrative 01/09/2022 6:19 PM CDT EXAM DESCRIPTION: DEXA AXIAL SKELETON BONE DENSITY 1 OR MORE SITES REASON FOR STUDY: 66 y/o year old F with given history of screening. Postmenopausal Court Commissioner/Model: Hologic Horizon A (S/N [id number]) CLINICAL INFORMATION: Current height: 62 inches Maximum [...] Seven Portillo M.D. MF: NICOLÁS Report ID: [id number] Reading Location: [place] [address] Procedure Note Seven Portillo MD - 01/09/2022 EXAM DESCRIPTION: DEXA AXIAL SKELETON BONE DENSITY 1 OR MORE SITES REASON FOR STUDY: 66 y/o year old F with given history ofscreening. Postmenopausal Court Commissioner/Model: Hologic Horizon A (S/N [id number]) CLINICAL INFORMATION: Current height: 62 inches Maximum [...] Seven Portillo M.D. MF: NICOLÁS Report ID: [id number] Reading Location: [id number] Lam Duarte DO IMG DXA PROCEDURES Final [...] a test for HCV RNA (test code 11927) is suggested. For additional information please refer to http://education.[employer]/faq/HBF10p4 (This link is being provided for informational/ educational purposes only.) 07/26/2021 2:00 PM CDT 07/26/2021 2:03 PM CDT Narrative [facility] - 07/27/2021 10:40 AM CDT FASTING:YES FASTING: YES Lam Duarte DO LAB MICROBIOLOGY - GENER AL ORDERABLES Final Result [facility] [address] [place] [address] from Last 3 Months or Most Recently Relevant to Health Maintenance Insurance MEDICARE FOR LIFE MEDICARE FOR LIFE MEDICARE FOR LIFE Care Teams Wire Photo Operator News Relationship Specialty Start Date End Date Lam Duarte DO [address] [address] PCP - General Family Medicine 07/23/21
--- OUTSIDE RECORDS SUMMARY | 2024-09-24 13:56 | XMS_ITS | Referral Summary ---
Author Organization [facility] Address [address] [place] [phone] Care Team Providers Care Infectious Waste Technician Name Role Phone Lam Duarte DO Primary Care Provider + Encounters Date Type Department Care Team Description 09/21/2024 Telephone [facility] Gastroenterology [address] [facility] [address], [address] [place] [phone] Angelina Weir LPN GI Preprocedure 09/20/2024 Telephone [facility] [address] [place] [phone] Chana Hernandez RN GI Preprocedure 09/14/2024 2:15 PM CDT Office Visit [facility] [address] [place] [address] [place] [phone] Lam Duarte DO Class 1 obesity without serious comorbidity with body mass index (BMI) of 30.0 to 30.9 in adult, unspecified obesity type (Primary Dx); Hiatal hernia; Gastroesophageal reflux disease without esophagitis 09/06/2024 Telephone [facility] [address] [place] [phone] Lam Duarte DO appt to discuss findings CT scan of kidney stones from Last 3 Months Allergies Active Allergy Reactions Criticality Noted Date Comments Morphine Vomiting Low 07/23/2021 Niacin Stomach upset Low 01/03/2017 Stomach/GI Upset Penicillins Rash Medium 01/03/2017 Rash Medications [id number] a-rtq-[id number]-bor 600 mg calcium- 800 unit-50 mg tablet [...] on file Legal Sex Female 5:57 AM [employer] Gender Identity Not on file Sexual Orientation [...] Description 10/04/2024 10:30 AM CDT Hospital Encounter [facility] [address] [place] [phone] Rodrick Morales MD [address] [address] 10/04/2024 10:30 AM CDT - 10/04/2024 11:00 AM CDT Surgery [facility] [address] [place] [phone] Rodrick Morales MD [address] [address] EGD Scheduled Procedures Name Priority Associated Diagnoses Date/Ti me ESOPHAGOGASTRODUODENOSCOPY Large hiatal hernia 10/04/2024 10:30 AM CDT Procedures Procedure Name Priority Date/Time Associated Diagnosis [...] age 40, based on guidelines of the [employer] (ACR Practice Parameter for the Performance of Screening and Diagnostic Mammography) and [employer]. For women [...] CDT) Stool DNA - Cologuard Negative Negative [facility] (CLIA #:[id number]) Comment: NEGATIVE TEST RESULT. A negative Cologuard [...] Boone et al, N Engl J Med 2014;370(14):4140-6019) The normal value (reference range) for this assay is negative. COLOGUARD RE-SCREENING RECOMMENDATION: Periodic colorectal cancer screening is an important part of preventive healthcare for asymptomatic individuals at average risk for colorectal cancer. Following a negative Cologuard result, the [place] [employer] and U.S. Multi-Society Task Force screening guidelines recommend a Cologuard re-screening interval of 3 years. References: [place] [employer] Guideline for Colorectal Cancer Screening: https://www.cancer.org/cancer/qwgik-yiskbz-okvktu/adqodcsko-mtsddustr-wvioklz/ac s-rec ommendations.html.; Garret MATHEWS, Carmencita FIELDS, Bella BrushK, Colorectal Cancer Screening: Recommendations for Physicians and Patients from the U.S. Multi-Society Task Force on Colorectal Cancer Screening , Am J Gastroenterology 2017; 112:2209-5585. TEST DESCRIPTION: Composite algorithmic analysis of stool [...] Henriquez. et al, N Engl J Med 2014;370(14):0977-1821.) Cologuard may produce a false negative or false positive result (no colorectal cancer or precancerous polyp present at colonoscopy follow up). A negative Cologuard test result does not guarantee the absence of CRC or advanced adenoma (pre-cancer). The current Cologuard screening interval is every 3 years. ([place] [employer] and U.S. Multi-Society Task Force). Cologuard performance data in a 10,000 patient pivotal study using colonoscopy as the reference method can be accessed at the following location: www.[employer]/results. Additional description of the Cologuard test process, warnings and precautions can be found at www.cologuard.com. Stool 08/21/2022 9:45 AM CDT 08/22/2022 5:16 PM CDT us Lam Duarte DO LAB BODY FLUIDS AND STOO LS ORDERABLES Final Result [facility] (CLIA #:[id number]) [place] [address] [address] * Dexa Axial Skeleton Bone Density 1 Or 2 Site (01/08/2022 2:46 PM CDT) Anatomical Region Laterality Modality Body N/A Mammography 01/09/2022 6:11 PM CDT Narrative 01/09/2022 6:19 PM CDT EXAM DESCRIPTION: DEXA AXIAL SKELETON BONE DENSITY 1 OR MORE SITES REASON FOR STUDY: 66 y/o year old F with given history of screening. Postmenopausal Old Testament Professor/Model: [employer] Horizon A (S/N [id number]) CLINICAL INFORMATION: Current height: 62 inches Maximum [...] Seven Portillo M.D. MF: NICOLÁS Report ID: [id number] Reading Location: [id number] Procedure Note Seven Portillo MD - 01/09/2022 EXAM DESCRIPTION: DEXA AXIAL SKELETON BONE DENSITY 1 OR MORE SITES REASON FOR STUDY: 66 y/o year old F with given history ofscreening. Postmenopausal Old Testament Professor/Model: Hologic Horizon A (S/N [id number]) CLINICAL INFORMATION: Current height: 62 inches Maximum [...] Seven Portillo M.D. MF: NICOLÁS Report ID: [id number] Reading Location: [id number] Lam Duarte DO IMG DXA PROCEDURES Final [...] a test for HCV RNA (test code 43340) is suggested. For additional information please refer to http://education.[employer]/faq/WKE05g0 (This link is being provided for informational/ educational purposes only.) 07/26/2021 2:00 PM CDT 07/26/2021 2:03 PM CDT Narrative [facility] - 07/27/2021 10:40 AM CDT FASTING:YES FASTING: YES Lam Duarte DO LAB MICROBIOLOGY - GENER AL ORDERABLES Final Result [facility] [address] [place] [phone] from Last 3 Months or Most Recently Relevant to Health Maintenance Insurance MEDICARE FOR LIFE MEDICARE FOR LIFE MEDICARE FOR LIFE Care Teams Infectious Waste Technician Relationship Specialty Start Date End Date Lam Duarte DO [address] [address] PCP - General Family Medicine 07/23/21
--- OUTSIDE RECORDS SUMMARY | 2024-09-24 13:57 | XMS_ITS | Encounter Summary ---
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 Gender Identity Not on file Sexual Orientation Straight 07/21/2021 10 :55 PM CDT documented as of this encounter Plan of Treatment Upcoming Encounters Date Type Department Care Team (Late st Contact Info) Description 10/04/2024 10:30 AM CDT Hospital Encounter [facility] [address] [place] [phone] Rodrick Morales MD [address] [address] 10/04/2024 10:30 AM CDT - 10/04/2024 11:00 AM CDT Surgery [facility] [address] [place] [phone] Rodrick Morales MD [address] [place] [address] EGD Scheduled Procedures Name Priority Associated Diagnoses Date/Ti me ESOPHAGOGASTRODUODENOSCOPY Large hiatal hernia 10/04/2024 10:30 AM CDT documented as of this encounter Procedures Procedure Name Priority Date/Time Associated Diagnosis Comments SCAN - LABS 11/21/2016 12:00 AM CDT documented in this encounter Results * SCAN - LABS (11/21/2016 12:00 AM CDT) Narrative 11/21/2016 12:00 AM CDT Ordered by an unspecified provider. us Historical Provider MD Final Res ult documented in this encounter Visit Diagnoses Not on filedocumented in this encounter Care Teams Special Educator Relationship Specialty Start Date End Date No, Physician PCP - General 05/16/21 07/22/21 Lam Duarte DO [address] [place] [id number] PCP - General Family Medicine 07/23/21 documented as of this encounter
--- OUTSIDE RECORDS SUMMARY | 2024-09-24 13:57 | XMS_ITS | Continuity of Care Document ---
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 [id number] skin check/6 [phone]. 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 [employer] /Wilber/ [phone] or [phone] MIRYAM COREAS 01/[address] [place] [address])([facility]) [address] [place] [address])([facility] Fam Res Tm Red) TELE CONSULT [id number] Notes Entered by: Trudi SHAH 09 Jun 2014 1210 ------- ------- ------- ------- -- Molina Abraham MERRITT ABRAHAM 06/[address] [place] [address])([facility] F[facility] Res Tm Red) [address] [place] [address])([facility] Fam Res Tm Red) TELE CONSULT [id number] Notes Entered by: Claire SHAH 11 Aug 2014 1201 ------- ------- ------- ------- -- Lab order to check cholest camilo and liver and mammogr am referra Chen /[phone] MIRYAM COREAS 08/[address] [place] [address])([facility] Fam Res Tm Red) [address] [place] [address])([facility] Fam Res Tm Red) TELE CONSULT [id number] Notes Entered by: MARIE RICE 16 Aug 2014 1206 ------- ------- ------- ------- -- Lab request /ahmet perez # MIRYAM COREAS 08/[address] [place] [address])([facility] F[facility] Res [facility]m Red) [address] [place] [address])([facility] Fam Res Tm Red) OUTPATIENT [id number] f/u on test results and referra l - [phone] SHERLY MCCLAIN 09/20 Released w/o Limitations [address] [place] [address] Group Atilio FLORIANB [facility])(S [facility] Fam Res Tm Red) [address] [place] [address] Group Atilio FLORIANB [facility])([facility] Fam Res Tm Red) TELE CONSULT [id number] Notes Entered by: PREMA SANFORD ELS 18 Oct 2014 1305 ------- ------- ------- ------- -- Med Renewal //Wilber //667.7 434 MERRITT ABRAHAM 10/[address] [place] [address] Group Atilio FLORIANB [facility])(S [facility] Fam Res Tm Red) [address] [place] [address] Atilio FLORIANB [facility])([facility] Fam Res Tm Red) TELE CONSULT [id number] Notes Entered by: PREMA SANFORD ELS 01 Nov 2014 1313 ------- ------- ------- ------- -- Med Renewal //Wilber //667.7 434 MERRITT ABRAHAM 11/[address] [place] [address] Group Atilio FLORIANB [facility])(S [facility] Fam Res Tm Red) [address] [place] [address] Atilio FLORIANB [facility])([facility] FAMRES Tm Blue) TELE CONSULT [id number] MERRITT ABRAHAM 02/[address] [place] [address] Atilio FLORIANB [facility])(S [facility] FAMRES Tm Blue) [address] [place] [address] Atilio FLORIANB [facility])(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) OUTPATIENT [id number] [facility],[phone] NIKIA WELCH 02/14 Released w/o Limitations [address] [place] [address] Group [employer] ([facility])(Mary headley gy) [address] [place] [address] Atilio FLORIANB [facility])(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) TELE CONSULT [id number] Notes Entered by: NIDIA WELCH 23 Feb 2015 0808 ------- ------- ------- ------- -- BMD results JIM BEVERLY 02/[address] [place] [address] Atilio FLORIANB ([facility])(G ynecolo gy) [address] [place] [address] Atilio RODRIGUEZ [facility]Sco tt [facility] Res Tm Red) OUTPATIENT [id number] follow up medicat ion MERRITT ABRAHAM 03/31 Released w/o Limitations [address] [place] [address] Atilio RODRIGUEZ [facility]S cott [facility]m [facility]) [address] [place] [address] Atilio [facility])(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) TELE CONSULT [id number] Notes Entered by: JOBY TYSON 07 Apr 2015 1505 ------- ------- ------- ------- -- Network Results -RADIOL OGY 5 NIKIA QUINTANILLA 04/[address] [place] [address] Atilio [facility])(G ynecolo gy) [address] [place] [address] [facility]Sco tt [facility] Fam Res Tm Red) TELE CONSULT [id number] Notes Entered by: Claire SHAH 17 May 2015 1435 ------- ------- ------- ------- -- Molina marks /Wilber/ [phone] MIRYAM COREAS 05/[address] [place] [address] [facility]io [facility]S [facility] Fam Res Tm Red) [address] [place] [address] [facility]io [facility])(Sco tt [facility] FAMRES Tm Blue) TELE CONSULT [id number] Notes Entered by: JANY NAVARRO 06 Jul 2015 1128 ------- ------- ------- ------- -- Network Results - DERMATO LOGY - 07/05/15 MERRITT WYMAN 07/[address] [place] [address] [facility]S [facility] FAMRES Tm Blue) [address] [place] [address] Atilio [facility])(Med ication Refill Clinic) TELE CONSULT [id number] Notes Entered by: TIARA WHELAN 27 Oct 2015 1458 ------- ------- ------- ------- -- Molina Marks / Wilber / or SOLANGE HARRIS Elva 10/[address] [place] [address])(M edicati on Refill Clinic) [address] [place] [address])([facility] Fam Res Tm Red) OUTPATIENT [id number] annual check up [phone] MERRITT ABRAHAM 03/19 Released w/o Limitations [address] [place] [address])([facility]) [address] [place] [address])([facility] Fam Res Tm Red) TELE CONSULT [id number] Notes Entered by: GORAN ROSS 13 Jun 2016 1429 ------- ------- ------- ------- -- SX -multip le sx med req/[facility]/618. [phone] 4 * MIRYAM COREAS 06/[address] [place] [address])([facility] Fam Res Tm Red) [address] [place] [address])(Med ication Refill Clinic) TELE CONSULT [id number] Notes Entered by: GABBI MARADIAGA 05 Aug 2016 1418 ------- ------- ------- ------- -- Med Renewal /WILBER/ REESE SAPP 08/05 Referred for Appointment [address] [place] [address])(M edicati on Ref[facility]) [address] [place] [address])([facility] Fam Res Tm Red) TELE CONSULT [id number] Notes Entered by: KALINA LOJA 28 Aug 2016 1526 ------- ------- ------- ------- -- SX - Symptom s of UTI / Lab Results / Wilber / [id number] / [phone] 4 - sgj MIRYAM COREAS 08/[address] [place] [address])([facility] Res [facility]m Red) [address] [place] [address])(Med ication Refill Clinic) TELE CONSULT [id number] Notes Entered by: KALINA LOJA 28 Aug 2016 1531 ------- ------- ------- ------- -- Med Hari / Wilber / [phone] 4 / [phone] 4 - sgj MIRYAM COREAS 08/[address] [place] [address])(Katie melendez on [facility]) [address] [place] [address])(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) OUTPATIENT [id number] [facility] [phone] 4 GRACIE NOYOLA 09/18 Released w/o Limitations [address] [place] [address])(Mary headley gy) [address] [place] [address])(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) TELE CONSULT [id number] Notes Entered by: DOTTIE HANNON 27 Sep 2016 0835 ------- ------- ------- ------- -- Nml Lab Results CLOVIS HANNON 09/27 Referred for Appointment [address] [place] [address])(Mary headley gy) [address] [place] [address])(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) TELE CONSULT [id number] Notes Entered by: ZELDA NOYOLA 02 Oct 2016 1646 ------- ------- ------- ------- -- results JIM BEVERLY 10/[address] [place] [address])(G ygeetha gy) [address] [place] [address])(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) OUTPATIENT [id number] discuss tx options possibl e hystere ctomy ELMO CORLEY 10/10 Released w/o Limitations [address] [place] [address])(G ynecoana gy) [address] [place] [address])(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) TELE CONSULT [id number] Notes Entered by: Heather CALDERON 05 Dec 2016 1423 ------- ------- ------- ------- -- JIM Mejia 12/[address] [place] [address] Atilio [facility])(G ynecoana gy) [address] [place] [address] Atilio [facility])(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) TELE CONSULT [id number] Notes Entered by: Betsy VAZQUEZ 09 Dec 2016 1445 ------- ------- ------- ------- -- GRACE Austin 12/[address] [place] [address])(G ynecoana gy) [address] [place] [address] Atilio [facility])(Ob/ [employer] 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) TELE CONSULT [id number] Notes Entered by: KHAI PARKER 03 Jan 2017 1354 ------- ------- ------- ------- -- Network results PRECISION AGRONOMIST 017and 12/26/19 17 ELMO BURRELL 01/[address] [place] [address] Atilio [facility])(O b/Global 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) [address] [place] [address])(Sco tt [facility] Res Tm Green) TELE CONSULT [id number] Notes Entered by: KALINA LOJA 14 Jan 2017 1527 ------- ------- ------- ------- -- F/U after Surgery / Wilber / - sgj MIRYAM COREAS 01/[address] [place] [address] Atilio [facility])(S [facility] Fam Res Tm Green) [address] [place] [address])(Sco tt [facility] Fam Res [place]m Green) OUTPATIENT [id number] f/u w/ pcm: s/p hystere ctomy Jan 03 MERRITT ABRAHAM 01/21 Released w/o Limitations [address] [place] [address] Atilio [facility])(S [facility] Fam Res Tm Green) [address] [place] [address] Atilio [facility])(Med ication Refill Clinic) TELE CONSULT [id number] Notes Entered by: HANSEL ANTHONY RET 10 Mar 2017 1548 ------- ------- ------- ------- -- Rx Change/ Pablito [phone]. [phone] MIRYAM Bustamante 03/[address] [place] [address] Atilio B [facility])(Katie melendez on Refill Clinic) [address] [place] [address] Atilio B [facility])(Sco tt [facility] Fam Res Tm Green) TELE CONSULT [id number] Notes Entered by: HUMBERTO MAYO 29 Jul 2017 1414 ------- ------- ------- ------- -- Lab Test Enedelia / Wilber/ - MIRYAM Drake 07/[address] [place] [address] Atilio FLORIANB [facility]S cott [facility] Fam Res Tm Green) [address] [place] [address] Atilio B [facility])(Sco tt [facility] Fam Res Tm Green) OUTPATIENT [id number] Routine Check-U p Lab results and Med Renewal s YUMIKO GALARZA 08/06 Released w/o Limitations [address] [place] [address] Atilio FLORIANB [facility])(S cott [facility] Fam Res Tm Green) [address] [place] [address] Atilio FLORIANB [facility])(Sco tt [facility] FAMRES Tm Blue) TELE CONSULT [id number] Notes Entered by: Augustine GALARZA 13 Aug 2017 0737 ------- ------- ------- ------- -- F/u urine culture YUMIKO GALARZA 08/13 Referred for Appointment [address] [place] [address] Atilio FLORIANB [facility])(S cott [facility] FAMRES Tm Blue) [address] [place] [address] Atilio FLORIANB [facility])(Sco tt [facility] Fam Res Tm Green) TELE CONSULT [id number] Notes Entered by: KALINA LOJA 24 Dec 2017 1301 ------- ------- ------- ------- -- Med Renewal / Conner christopher / - LUIS Campbell 12/[address] [place] [address] Atilio FLORIANB [facility])(S cott [facility] Fam Res Tm Green) [address] [place] [address] Atilio FLORIANB [facility])(Sco tt [facility] Fam Res Tm Green) OUTPATIENT [id number] left foot, raised area -- upper lip check PHANI VALDEZ 01/29 Released w/o Limitations [address] [place] [address] Atilio FOLRIANB [facility])(S cott [facility] Fam Res Tm Green) [address] [place] [address] Atilio B [facility])(Sco tt [facility] Fam Res Tm Green) OUTPATIENT [id number] Derm issue on the chest [id number] PHANI VALDEZ 06/16 Released w/o Limitations [address] [place] [address] Atilio FLORIANB [facility])(S cott [facility] Fam Res Tm Green) [address] [place] [address] Atilio FLORIANB [facility])(Sco tt [facility] Fam Res Tm Green) OUTPATIENT [id number] Procedu re/skin biospy, chest,s houlder ,left knee. ELMO HANSEN 06/29 Released w/o Limitations [address] [place] [address] Atilio FLORIANB [facility])(S cott [facility] Fam Res Tm Green) [address] [place] [address] Atilio FLORIANB [facility])(Sco tt [facility] FAMRES Tm Blue) TELE CONSULT [id number] Notes Entered by: Claire HANSEN 13 Jul 2018 0717 ------- ------- ------- ------- -- biopsy ELMO HANSEN 07/13 Referred for Appointment [address] [place] [address] Atilio FL[facility]IAN[facility])(S cott [facility] FAMRES Tm Blue) [address] [place] [address] Atilio FLORIANB [facility])(Sco tt [facility] Fam Res Tm Green) TELE CONSULT [id number] Notes Entered by: KALINA LOJA 09 Sep 2018 1315 ------- ------- ------- ------- -- Molina Marks / Conner christopher / - sgj MIRYAM COREAS 09/09 Referred for Appointment [address] [place] [address] Atilio FL[facility]IAN[facility]S cott [facility] Fam Res Tm Green) [address] [place] [address] Atilio [facility])(Sco tt [facility] [place] TELE CONSULT [id number] Notes Entered by: Yanely COREAS 16 Sep 2018 1145 ------- ------- ------- ------- -- Inquiri ng about Cologua rd, tel: [phone]. PHANI VALDEZ 09/16 Referred for Appointment [address] [place] [address] Atilio [facility])(S cott [facility] [place] [facility] [address] [place] [address] Atilio [facility])(Sco tt [facility] [place]) TELE CONSULT [id number] Notes Entered by: Albaro MOULTON 17 Nov 2018 0908 ------- ------- ------- ------- -- Network results Dermato logy 019 PHANI GUTIERREZ 11/17 Released w/o Limitations [address] [place] [address] [facility]S [facility] [place]) [address] [place] [address] Atilio [facility])(Sco tt [facility] [place] TELE CONSULT [id number] Notes Entered by: ERIN BINGHAM 01 Jan 2019 1258 ------- ------- ------- ------- -- Rx renewal - Kristin [facility] [place] KEN LAU 01/01 Referred for Appointment [address] [place] [address] [facility]S cott [facility] [place]) [address] [place] [address] Atilio [facility])(Sco tt [facility] [place]) TELE CONSULT [id number] Notes Entered by: HUMBERTO MAYO 12 Jan 2019 1306 ------- ------- ------- ------- -- Med Bridge Request / Kristin/ - [facility] KEN LAU 01/12 Medication Refill Forwarded [address] [place] [address] [facility]S [facility] Tm [place]) [address] [place] [address] Group Atilio [facility]Sco tt [facility] [place]) OUTPATIENT [id number] Med Renewal - Cologur ad request -[phone] KEN LAU 02/03 Released w/o Limitations [address] [place] [address] Atilio RODRIGUEZ ([facility]S cott [facility] [place] [address] [place] [address] Atilio [facility])(Sco tt [facility] [place]) TELE CONSULT [id number] Notes Entered by: LAVERN VALE 25 Mar 2019 1446 ------- ------- ------- ------- -- referra l inquiry /kristin/ [phone] KEN Roman 03/25 Other Not Elsewhere Classified [address] [place] [address] Atilio RODRIGUEZ [facility]S [facility] [place]) [address] [place] [address] [facility]Sco tt [facility] [place]) TELE CONSULT [id number] 2 Notes Entered by: LAVERN VALE 29 Jun 2019 1432 ------- ------- ------- ------- -- medical inquiry /kristin/ [phone] MIRYAM Adams 06/28 Released to Self Care [address] [place] [address] Atilio [facility]IG[facility]S [facility] [place]) [address] [place] [address] [facility]Sco tt [facility] [place]) TELE CONSULT [id number] Notes Entered by: ISABELA ZAMORA 13 Aug 2019 1139 ------- ------- ------- ------- -- Cologua rd result DAVINA VENEGAS 08/[address] [place] [address] Atilio [facility]IGUEZ [facility] [place]) [address] [place] [address] Atilio RODRIGUEZ [facility]Sco tt [facility] [place]) TELE CONSULT [id number] 5 Notes Entered by: BHAVESH ELLIOTT 30 Sep 2019 1609 ------- ------- ------- ------- -- Network results Dermato logy 020 KSP KEN LAU 09/29 Other Not Elsewhere Classified [address] [place] [address] Atilio ROD[facility]IGUEZ [facility]S cott [facility] [place] [address] [place] [address] Atilio [facility])(Sco tt [facility] [place]) TELE CONSULT [id number] 2 Notes Entered by: ERIN BINGHAM 18 Jan 2020 1505 ------- ------- ------- ------- -- Rx renewal - Kristin - [phone] - tsg MARISOL ROBB 01/17 Released to Self Care [address] [place] [address])(S cott [facility] [place]) [address] [place] [address] Atilio [facility])(Sco tt [facility] [place]) TELE CONSULT [id number] Notes Entered by: Martinez LAU 28 Jan 2020 1335 ------- ------- ------- ------- -- Appt needed OMAYRA CHANDLER 01/27 Referred for Appointment [address] [place] [address] [facility]S [facility] [place]) [address] [place] [address] Atilio [facility])(Sco tt [facility] [place]) OUTPATIENT [id number] med refills and lab results KEN LAU 02/01 Released w/o Limitations [address] [place] [address] Atilio [facility]IGUEZ [facility]S cott [facility] [place]) [address] [place] [address] Atilio [facility]Sco tt [facility] [place]) OUTPATIENT [id number] f/u on xrays [phone] KEN LAU 03/06 Released w/o Limitations [address] [place] [address] Atilio [facility]S cott [facility] [place]) [address] [place] [address] Atilio [facility])([facility]) OUTPATIENT [id number] Obesity , unspeci fied LYNSEY BOLTON 03/08 Released w/o Limitations [address] [place] [address] Atilio [facility]N gail Deutschin e) [address] [place] [address] Atilio [facility])(Sco tt [facility] [employer] [facility] [place]) TELE CONSULT [id number] Notes Entered by: Joslyn LUJAN 05 Apr 2020 1045 ------- ------- ------- ------- -- Network results Dermato logy 020 ALD KEN LAU 04/05 Other Not Elsewhere Classified [address] [place] [address] [facility]S cott [facility] [place]) [address] [place] [address] Atilio [facility])(Sco tt [facility] [place]) TELE CONSULT [id number] 1 Notes Entered by: Martinez LAU 06 Jul 2020 1351 ------- ------- ------- ------- -- Mammogr am Results KEN LAU 07/06 Other Not Elsewhere Classified [address] [place] [address])(S [facility] [place]) [address] [place] [address])(Sco tt [facility] [place]) OUTPATIENT [id number] Virtual -med renewal [phone] AMARILYS SERRATO 12/08 Released w/o Limitations [address] [place] [address])(S [facility] Tm Green) Procedures Combined list of: 1) Procedures from Department of Veterans Affairs facilities [facility], not all VA non-surgical procedures are included; 2) All procedures from the Department of Defense facilities. Procedure Procedure Type Code Date Perfomer Comments [facility] e Preventive Medicine Complete Physical Skin Exam Performed Preventive Medicine Complete Physical Skin Exam Performed 9 ELMO HANSEN Shaving Of Lesion Trunk 1.1 to 2cm Shaving Of Lesion Trunk 1.1 to 2cm [id number] 9 ELMO HANSEN Destruction Of Benign Lesion By Any Method 1 - 14 Lesions Destruction Of Benign Lesion By Any Method 1 - 14 Lesions [id number] 9 ELMO HANSEN Non-Physician Phone Call To Patient/Provider Brief (5-10min) Non-Physician Phone Call To Patient/Provider Brief (5-10min) 51730 7 MERRITT ABRAHAM [facility] Non-Physician Phone Call To Patient/Provider Brief (5-10min) Non-Physician Phone Call To Patient/Provider Brief (5-10min) [phone] 7 MIRYAM COREAS [facility] Non-Physician Phone Call To Patient/Provider Brief (5-10min) Non-Physician Phone Call To Patient/Provider Brief (5-10min) 35339 7 CLOVIS HANNON [facility] Non-Physician Phone Call To Pt/Provider Intermed (11-20 min) Non-Physician Phone Call To Pt/Provider Intermed (11-20 min) 87184 7 MERRITT ABRAHAM [facility] Non-Physician Phone Call To Patient/Provider Brief (5-10min) Non-Physician Phone Call To Patient/Provider Brief (5-10min) 81750 6 MERRITT ABRAHAM [facility] Non-Physician Phone Call To Patient/Provider Brief (5-10min) Non-Physician Phone Call To Patient/Provider Brief (5-10min) 24195 5 MIRYAM COREAS Non-Physician Phone Call To Patient/Provider Brief (5-10min) Non-Physician Phone Call To Patient/Provider Brief (5-10min) 80509 5 MIRYAM COREAS Non-Physician Phone Call To Patient/Provider Brief (5-10min) Non-Physician Phone Call To Patient/Provider Brief (5-10min) 42803 5 MIRYAM COREAS Non-Physician Phone Call To Patient/Provider Brief (5-10min) Non-Physician Phone Call To Patient/Provider Brief (5-10min) 78220 5 ASHISH CASTILLO [facility] Non-Physician Phone Call To Patient/Provider Brief (5-10min) Non-Physician Phone Call To Patient/Provider Brief (5-10min) [id number] 5 MIRYAM COREAS Non-Physician Phone Call To Patient/Provider Brief (5-10min) Non-Physician Phone Call To Patient/Provider Brief (5-10min) 02041 5 MIRYAM COREAS Non-Physician Phone Call To Patient/Provider Brief (5-10min) Non-Physician Phone Call To Patient/Provider Brief (5-10min) 19146 4 MIRYAM COREAS Non-Physician Phone Call To Patient/Provider Brief (5-10min) Non-Physician Phone Call To Patient/Provider Brief (5-10min) 89412 4 FREEDOM SANABRIA [facility] Skin Tag Removal Up To 15 Lesions Skin Tag Removal Up To 15 Lesions 47896 4 SHERLY MCCLAIN [facility] Destruction Of Premalignant Lesion By Any Method One Lesion Destruction Of Premalignant Lesion By Any Method One Lesion 63249 4 SHERLY MCCLAIN [facility] Cervical or vaginal cancer screening; pelvic and clinical breast examination 3 CHIKI AZAR [facility] Non-Physician Phone Call To Patient/Provider Brief (5-10min) Non-Physician Phone Call To Patient/Provider Brief (5-10min) 02784 3 MABLE LEO [facility] Allergy Percutaneous tests - allergenic extracts 3 RONNIE ROSE [facility] Non-Physician Phone Call To Patient/Provider Brief (5-10min) Non-Physician Phone Call To Patient/Provider Brief (5-10min) 80471 2 MIRYAM COREAS Non-Physician Phone Call To Patient/Provider Brief (5-10min) Non-Physician Phone Call To Patient/Provider Brief (5-10min) 43987 2 MIRYAM COREAS Non-Physician Phone Call To Patient/Provider Brief (5-10min) Non-Physician Phone Call To Patient/Provider Brief (5-10min) 70623 2 MIRYAM COREAS Non-Physician Phone Call To Patient/Provider Brief (5-10min) Non-Physician Phone Call To Patient/Provider Brief (5-10min) 71930 1 MIRYAM COREAS Non-Physician Phone Call To Patient/Provider Brief (5-10min) Non-Physician Phone Call To Patient/Provider Brief (5-10min) 84553 1 JANY CASAREZ [facility] Non-Physician Phone Call To Patient/Provider Brief (5-10min) Non-Physician Phone Call To Patient/Provider Brief (5-10min) 38852 1 IVANA MONTILLA [facility] Non-Physician Phone Call To Patient/Provider Brief (5-10min) Non-Physician Phone Call To Patient/Provider Brief (5-10min) 00296 1 ASHISH CASTILLO [facility] Vaginal Wet Mount Smear Vaginal Wet [place] Smear 25313 0 ANDREA ORTIZ [facility] Vaginal VÍCTOR Prep Vaginal VÍCTOR Prep 25950 01 0 ANDREA ORTIZ [facility] Screening papanicolaou smear; obtaining, preparing and conveyance of cervical or vaginal smear to laboratory 0 ANDREA ORTIZ [facility] Medical Nutrition Therapy Re-a e ment, Intervention Medical Nutrition Therapy Re-assessment, Intervention [id number] 9 CAYETANO SOOD [facility] Medical Nutrition Therapy Initial A e ment, Intervention Medical Nutrition Therapy Initial Assessment, Intervention 33532 9 CAYETANO SOOD [facility] Vaginal Wet Mount Smear Vaginal Wet [place] Smear 31064 9 ANITHA LÓPEZ [facility] Endometrial Biopsy By Suction Endometrial Biopsy By Suction 44967 9 MOLLY MEIER [facility] Osteopathic Manip Treatment (OMT) 3-4 Body Regions Involved Osteopathic Manip Treatment (OMT) 3-4 Body Regions Involved 03732 7 MIKE SAWYER [facility] Skin Lesion VÍCTOR Prep Skin Lesion VÍCTOR Prep 28926 7 NATHALY DUVAL [facility] Cervical Pap Smear Cervical Pap Smear 83306 7 SARAVANAN ESQUIVEL [facility] Urinalysis Urinalysis 00545 7 NATHALY DUVAL [facility] Osteopathic Manip Treatment (OMT) 1-2 Body Regions Involved Osteopathic Manip Treatment (OMT) 1-2 Body Regions Involved 27793 6 LULI SOLIS [facility] Oropharynx Culture Streptococcus Group A Beta Hemolytic Oropharynx Culture Streptococcus Group A Beta Hemolytic 55782 09/25/200 6 KARLA DENT [facility] Rapid Antigen Identification Streptococcus Group A Beta Hemolytic Rapid Antigen Identification Streptococcus Group A Beta Hemolytic 40498 6 KARLA DENT [facility] Osteopathic Manip Treatment (OMT) 1-2 Body Regions Involved Osteopathic Manip Treatment (OMT) 1-2 Body Regions Involved 84481 6 MARTÍNEZ BLOUNT [facility] Osteopathic Manip Treatment (OMT) 5-6 Body Regions Involved Osteopathic Manip Treatment (OMT) 5-6 Body Regions Involved 82926 6 NATHALY EVANS [facility] Automated UA With Microscopic Exam Automated UA With Microscopic Exam 32852 6 LULI SOLIS [facility] Corticosteroids Injection Intraarticular Left Shoulder Corticosteroids Injection Intraarticular Left Shoulder 69557 6 NATHALY DUVAL [facility] Injection, droperidol and fentanyl citrate, up to 2 ml ampule 6 NATHALY DUVAL [facility] Cervical Pap Smear Cervical Pap Smear 25562 5 KARIN CARROLL [facility] Non-Physician Phone Call To Patient/Provider Brief (5-10min) Non-Physician Phone Call To Patient/Provider Brief (5-10min) 22913 MIRYAM COREAS [facility] Medical Nutrition Therapy Initial A e ment, Intervention Medical Nutrition Therapy Initial Assessment, Intervention 84416 LYNSEY BOLTON DoD Waiver services; not otherwise specified (NOS) AMARILYS SERRATO Social History Combined list of available smoking, tobacco, and other social history from Department of Defense and Veterans Affairs facilities. 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
[2024-09-24 14:10] VITALS: BP 111/70; PULSE 85; RESP 18; TEMP 36.4; O2SAT 97
[2024-09-24 14:31] LABS: EDSTREPNEGPOS1 Negative (Negative)
--- NOTE | 2024-09-24 15:10 | ED.URI ---
HPI - URI/Sore Throat General Chief Complaint: Upper Respiratory Infection Stated Complaint: cough Time Seen by Provider: 09/24/24 14:25 Source: patient and RN notes reviewed Mode of arrival: ambulatory Limitations: no limitations History of Present Illness HPI Narrative: 61-year-old female presents Express Care complaining of upper respiratory symptoms for 3-4 days. Patient reports cough, congestion, sore throat. Patient reports cough nonproductive and dry and worse at night. Patient said her daughter's recent diagnosis of bronchitis was exposed to her. Patient denies any chest pain, shortness of breath, ear pain, any other symptoms. Patient states she has endoscopy coming up in 10 days for hernia. Related Data Home Medications ?Medication ?Instructions ?Recorded ?Confirmed ?Last Taken ?Type calcium 600 mg (as 1 tablet PO DAILY 03/06/19 11/05/21 02/05/21 History carbonate)-vitamin D3 20 mcg (800 unit) tablet (Caltrate with Vitamin D3) fexofenadine 180 mg tablet 1 mg PO DAILY 03/06/19 11/05/21 02/05/21 History omeprazole 20 mg capsule,delayed See Rx Instructions .Route .COMPLEX 03/06/19 11/05/21 02/08/21 History release pravastatin 40 mg tablet 40 mg PO DAILY 03/06/19 11/05/21 02/05/21 History krill 1 cap PO DAILY 02/01/21 11/05/21 02/05/21 History jph-ih1-eyx-gqx-qh9-iof-astax 1,500 mg-165 mg-67.5 mg capsule (Krill Oil ([place] 3 and 6)) Allergies Allergy/AdvReac Type Severity Reaction Status Date / Time niacin Allergy Mild Flushing Verified 09/24/24 14:36 Penicillins Allergy Mild Rash Verified 09/24/24 14:36 morphine Allergy Nausea and Verified 09/24/24 14:36 Vomiting Review of Systems Review of Systems: CONSTITUTIONAL: Denies fever, chills, body aches, or sweats. EYES: Denies visual changes, redness, or discharge. ENT: Negative for rhinorrhea, or otalgia. Positive for sore throat congestion. CARDIOVASCULAR: Denies chest pain, palpitations, or edema. RESPIRATORY: Positive for cough. Negative for dyspnea or wheezing. GASTROINTESTINAL: Denies abdominal pain, nausea, vomiting, or diarrhea. GENITOURINARY: Denies dysuria or hematuria. SKIN: Denies rash or itching. MUSCULOSKELETAL: Denies back pain, joint pain, or myalgia. NEUROLOGIC: Denies headache, numbness, or weakness. PSYCHIATRIC: Denies anxiety or depression. All other systems reviewed are negative, except as documented in HPI. [facility] Past Medical History Medical History Hyperlipidemia GERD (gastroesophageal reflux disease) Social History Social History Smoking status: Never smoker Living arrangements: with family Gender identity (if verbalized by the patient): Female Spiritual care concerns: No Comments At the time of my signature, I reviewed and agree with the nursing past medical, surgical, social, and family history. There is no relevant family history pertinent to the patient complaint. Exam Narrative: GENERAL: This is a well-nourished, well-developed adult, in no apparent distress. They are non ill-appearing, nontoxic appearing. HEAD: normocephalic, atraumatic. EYES: Sclera clear/white. Vision is grossly intact. Conjunctiva normal bilaterally. Extraocular movements intact. EARS: External ears normal, auditory canals clear and without drainage, TMs without erythema or perforation. Hearing grossly intact. NOSE: External nose normal with no obvious nasal discharge, nasal turbinates erythematous, no rhinorrhea. THROAT: Mucous membranes moist, posterior pharynx erythematous without exudate. Uvula is midline. Postnasal drip present. NECK: Neck supple, non-tender without lymphadenopathy, masses or thyromegaly. CARDIOVASCULAR: Regular rate and rhythm without murmurs, gallops, or rubs. RESPIRATORY: Clear to auscultation. Breath sounds equal bilaterally. No wheezes, rales, or rhonchi. Respiratory rate normal, respiratory effort nonlabored, no respiratory distress SKIN: warm, Dry, intact with no suspicious lesions or rash, good texture and turgor. NEURO: awake, alert, and oriented to person, place and time. There were no obvious focal neurologic abnormalities. EXTREMITIES: No joint tenderness, effusion, or edema noted. BACK: Nontender without deformity. Course Course Emergency Course: Portions of this record may have been created with voice recognition software Level of Care: Express Care Visit Vital Signs Vital signs: Vital Signs Temperature 97.5 F L 09/24/24 14:10 Pulse Rate 85 09/24/24 14:10 Respiratory Rate 18 09/24/24 14:10 Blood Pressure 111/70 09/24/24 14:10 Pulse Oximetry 97 09/24/24 14:10 Oxygen Delivery Room Air 09/24/24 14:10 Temperature 97.5 F L 09/24/24 14:10 Pulse Rate 85 09/24/24 14:10 Respiratory Rate 18 09/24/24 14:10 Blood Pressure 111/70 09/24/24 14:10 Pulse Oximetry 97 09/24/24 14:10 Oxygen Delivery Room Air 09/24/24 14:10 MDM - URI/Sore Throat MDM Narrative Medical decision making narrative: Rapid strep negative. A throat culture is pending. Patient likely has a viral bronchitis. Will prescribe Medrol Dosepak and benzonatate tablets as needed for cough. Discussed physical exam findings. Advised supportive measures and signs/symptoms to go to the ER. Pt is appropriate for outpt treatment and f/u. Differential Diagnosis Differential diagnosis: Likely upper respiratory infection, viral infection, bronchitis and pharyngitis Lab Data Attestation: I reviewed the patient's lab results. Labs: Lab Results 09/24/24 Range/Units 14:29 POC Grp A Strep Screen Negative (Negative) Discharge Plan Discharge Clinical Impression: Bronchitis Patient Disposition: Home Condition: Stable Instructions: Antibiotic Form, Acute Bronchitis (ED) Additional Instructions: Your rapid strep was negative today. A throat culture will be sent off and if it is positive for strep you will be contacted prescribed appropriate antibiotics at this time. Is likely of a viral bronchitis. Most viral illnesses will last 7-14 days an antibiotics are ineffective to them. Take steroid Dosepak as directed. Recommend Flonase spray and Zyrtec (or Claritin/Charline) for congestion Take benzonatate as needed for cough. Tylenol or ibuprofen as needed for pain or fevers. Symptomatic treatment includes: rest, fluids, and increase humidity of the air at home. Follow up with your primary care provider as needed in 1 week He develop any difficulty breathing, chest pain, nausea, vomiting, any other concerns please go to the ER immediately. Patient Language: Turkmen Prescriptions: New benzonatate 100 mg capsule 100 mg PO TID PRN (Reason: cough) Qty: 20 0RF methylprednisolone 4 mg tablets,dose pack See Rx Instructions .ROUTE .COMPLEX Qty: 21 0RF Rx Instructions: for 6 days No Action calcium carbonate-vitamin D3 [Caltrate with Vitamin D3] 600 mg(1,500mg) -800 unit tablet 1 tablet PO DAILY fexofenadine 180 mg tablet 1 mg PO DAILY omeprazole 20 mg capsule,delayed release(DR/EC) See Rx Instructions .ROUTE .COMPLEX Rx Instructions: 20 mg pravastatin 40 mg tablet 40 mg PO DAILY Krill Oil ([place] 3 and 6) 1,500-165-67.5 mg Capsule 1 cap PO DAILY Follow-up/Referrals: Gerald,Lam Ghosh MD [Primary Care Provider] - Time of Disposition: 14:42
== END 2024-09-24 14:50 | disposition home or self-care (01) ==
PROVIDERS: PCP Family Medicine
DX: J40 Bronchitis, not specified as acute or chronic (principal); E78.5 Hyperlipidemia, unspecified; K21.9 Gastro-esophageal reflux disease without esophagitis
CPT/HCPCS: 87081; 87880; 99213; G0463